=== PATIENT | female | born 2000 | race Caucasian/White ===

== ENCOUNTER 2022-02-12 11:01 | Outpatient (CLI) | payer MEDICAID ==
--- NOTE | 2022-02-12 15:47 | Ultrasound Report ---
PROCEDURE: OB First Trimester INDICATIONS: POSITIVE TEST OUTSIDE/PRIOR DATING DATA: Last menstrual period (LMP): 12/17/2021. LMP-based estimated date of delivery (TANK): 09/23/2022. First dating scan (date and location): 02/12/2022. Estimated date of delivery (TANK) from first dating scan: 09/30/2022. TECHNIQUE: Real-time transabdominal scanning was performed of the fetus and maternal pelvic organs, with image d ocumentation. COMPARISON: None FINDINGS: Embryo: Present, crown-rump length of 1.05 cm corresponding to gestational age of 7 weeks 1 day. Heart rate: 133 bpm Mean gestational sac size: 2.3 cm, corresponding to gestational age of 7 weeks 2 days. Measurement variability in dating: +/- 4 weeks by LMP, +/- 7 days by mean sac diameter (use before 6 weeks gestation if crown-rump length not able to be measured), +/- 5 days by crown-rump length (6-12 weeks gestation). Maternal organs: Ovaries are unremarkable. IMPRESSION: Single living intrauterine with gestational age of 7 weeks 1 day by crown-rump length, disc ordant with clinical dates. Reviewed by: Cristhian Mcdermott MD on 02/12/2022 3:46 PM PDT Approved by: Cristhian Mcdermott MD on 02/12/2022 3:46 PM PDT Station ID: [id number]
== END 2022-02-12 11:02 | disposition home or self-care (01) ==
LOC: DI 11:01
PROVIDERS: ATTEND Obstetrics & Gynecology
DX: Z32.01 Encounter for pregnancy test, result positive (principal)

== ENCOUNTER 2022-03-05 14:27 | Outpatient (CLI) | payer MEDICAID ==
[2022-03-05 14:44] LABS: BASOPHILS % (AUTO) 0.4 %; EOSINOPHILS % (AUTO) 0.3 %; HCT - HEMATOCRIT 38.9 % (37.0-47.0); HGB - HEMOGLOBIN 13.1 g/dL (12.0-16.0); LYMPHOCYTES # (AUTO) 1.4 10^3/uL (1.5-3.5); LYMPHOCYTES % (AUTO) 20.4 %; MEAN CORPUSCULAR HEMOGLOBIN 26.3 pg (27.0-31.0); MEAN CORPUSCULAR HGB CONC 33.7 g/dL (32.0-36.0); MEAN CORPUSCULAR VOLUME 78.1 fL (81.0-99.0); MEAN PLATELET VOLUME 10.5 fL (7.9-10.8); MONOCYTES # (AUTO) 0.4 10^3/uL (0.0-1.0); MONOCYTES % (AUTO) 6.6 %; NEUTROPHILS # (AUTO) 4.8 10^3/uL (1.5-6.6); NEUTROPHILS % (AUTO) 72.2 %; PLT - PLATELET COUNT 281 10^3/uL (130-450); RED BLOOD COUNT 4.98 10^6/uL (4.20-5.40); RED CELL DISTRIBUTION WIDTH 14.8 % (12.0-15.0); WHITE BLOOD COUNT 6.7 x10^3/uL (4.8-10.8)
[2022-03-06 06:09] LABS: HIV SCREEN 4TH GENERATION Non Reactive (Non Reactive); PROGESTERONE 13.4 ng/mL (.)
[2022-03-06 07:09] LABS: HBsAG SCREEN Negative (Negative); HCV AB 0.2 s/co ratio (0.0-0.9)
[2022-03-06 08:09] LABS: RPR Non Reactive (Non Reactive)
[2022-03-06 10:09] LABS: VARICELLA-ZOSTER AB IGG <135 index (Immune >165)
== END 2022-03-05 14:28 | disposition home or self-care (01) ==
LOC: LAB 14:27
PROVIDERS: ATTEND Obstetrics & Gynecology
DX: Z36.89 Encounter for other specified antenatal screening (principal); Z32.01 Encounter for pregnancy test, result positive
CPT/HCPCS: 36415; 84144; 85025; 86592; 86762; 86787; 86803; 86850; 86900; 86901; 87340; 87389

== ENCOUNTER 2022-04-13 12:50 | Outpatient (CLI) | payer MEDICAID ==
[2022-04-18 21:07] LABS: AFP MOM See interpretation. (.); AFP VALUE 23.8 ng/mL (.); DIA MOM See interpretation. (.); DIA VALUE 145.24 pg/mL (.); DSR (BY AGE) 1 IN 1116 (.); DSR (SECOND TRIMESTER) 1 IN See interpretation. (.); GESTAT. AGE METHOD As provided (.); HCG MOM See interpretation. (.); HCG VALUE 42976 mIU/mL (.); MATERNAL AGE AT EDD 22.5 yr (.); OPEN SPINA BIFIDA RISK 1 IN See interpretation. (.); RESULTS Report (.); TEST RESULTS See interpretation. (.); TRISOMY 18 RISK See interpretation. (.); UE3 MOM See interpretation. (.); UE3 VALUE 1.03 ng/mL (.)
== END 2022-04-13 12:51 | disposition home or self-care (01) ==
LOC: LAB 12:50
PROVIDERS: ATTEND Obstetrics & Gynecology
DX: Z34.00 Encounter for supervision of normal first pregnancy, unspecified trimester (principal)
CPT/HCPCS: 36415; 81511

== ENCOUNTER 2022-05-04 16:20 | Outpatient (CLI) | payer MEDICAID ==
[2022-05-04 17:00] LABS: RUPTURE OF MEMBRANES PLUS NEGATIVE (NEGATIVE)
[2022-05-04 23:05] LABS: BACTERIAL VAGINOSIS DNA NEGATIVE (NEGATIVE); CANDIDA GLABRATA DNA NEGATIVE (NEGATIVE); CANDIDA GROUP DNA NEGATIVE (NEGATIVE); CANDIDA KRUSEI DNA NEGATIVE (NEGATIVE); TRICHOMONAS VAGINALIS DNA NEGATIVE (NEGATIVE)
== END 2022-05-04 23:59 | disposition home or self-care (01) ==
LOC: LAB.WC 16:20
PROVIDERS: ATTEND Nurse Practitioner
DX: Z03.71 Encounter for suspected problem with amniotic cavity and membrane ruled out (principal)
CPT/HCPCS: 81514; 84112

== ENCOUNTER 2022-05-14 16:23 | Outpatient (CLI) | payer MEDICAID ==
--- NOTE | 2022-05-15 14:20 | Ultrasound Report ---
PROCEDURE: OB Detailed Eval INDICATIONS: SUPERVISION OF OUTSIDE/PRIOR DATING DATA: Last menstrual period (LMP): 12/17/2021. LMP-based estimated date of delivery (TANK): . First dating scan (date and location): Dr. Coto office. 02/12/2022. Estimated date of delivery (TANK) from first dating scan: 09/20/2022. TECHNIQUE: Real-time scanning was performed of the fetus, with image documentation and biometric measurements. Endovaginal scanning: Not performed COMPARISON: First trimester OB ultrasound dated 02/12/2022 FINDINGS: General: A single living intrauterine gestation is present. Presentation: Variable Placenta: Placental position is anterior, without previa. Amniotic fluid index: 16.5 cm. heart rate: 166 beats per minute. Maternal cervical canal: 3.7 cm long; normal length is 2.5 cm or more. biometrics: Biparietal diameter: 4.5 cm, 19 weeks, 5 days Head circumference: 17.8 cm, 20 weeks, 2 days Abdominal circumference: 14.7 cm, 20 weeks, 0 days Femur length: 3.2 cm, 20 weeks, 0 days Estimated gestational age from initial scan: 20 weeks, 1 day Composite gestational age from present scan: 19 weeks, 6 days Estimated weight and percentile: 325 g, 37% Measurement variability in biometric dating: +/- 10 days from 12-20 weeks gestation, +/- 2 weeks from 20-30 weeks gestation, +/- 3 weeks at 30 weeks gestation or later. Anatomic survey: Neuro: Ventricles are normal at less than 10 mm. Cisterna magna is normal at 3-11 mm. Cerebellum i s normal in size and morphology. Nuchal skin fold: Normal at less than 6 mm between 14 and 20 weeks gestational age. Face: Nose and lips, facial profile are normal. Spine: No evidence for spina bifida. Heart: 4-chambered heart is present, with normal ventricular outflow tracts. Diaphragm: Diaphragm is intact. Stomach: Left-sided stomach is present. Kidneys: No hydronephrosis. Normal is less than 5 mm in 2nd trimester, less than 7 mm in 3rd trimester. Cord: 3 vessel cord has orthotopic insertion. Bladder: Normal in size. Extremities: All 4 extremities are visualized. IMPRESSION: 1. Single live intrauterine gestation with a composite gestational age of 19 weeks, 6 days which is c oncordant with dates by initial scan. 2. No sonographic anatomic abnormalities. Reviewed by: Chela Vyas MD on 05/15/2022 2:19 PM PST Approved by: Chela Vyas MD on 05/15/2022 2:19 PM PST Station ID: [id number]
== END 2022-05-14 16:24 | disposition home or self-care (01) ==
LOC: DI 16:23
PROVIDERS: ATTEND Obstetrics & Gynecology
DX: Z34.02 Encounter for supervision of normal first pregnancy, second trimester (principal)

== ENCOUNTER 2022-05-15 11:22 | Emergency (ER) | payer MEDICAID ==
[2022-05-15 11:54] VITALS: BP 126/65
[2022-05-15 12:14] LABS: RAPID STREP SCREEN Negative (Negative)
--- NOTE | 2022-05-15 12:56 | ED Physician Documentation ---
PD HPI HEENT - Stated complaint Stated Complaint: THROAT PX/VOMITING - Chief complaint Chief Complaint: Heent - History obtained from History obtained from: Patient - Additional information Additional information: The patient comes the emergency department with chief complaint of "I have strep". She states that she began to develop a scratchy throat yesterday and then had some vomiting, and her mother told her that these are the same symptoms she has every time she has strep. The patient states she has a mildly runny nose and a little bit of a cough as well. No fevers or chills. She is 20 weeks . No other complaints at this time. Review of Systems Ten Systems: 10 systems reviewed and negative Constitutional: reports: Reviewed and negative Eyes: reports: Reviewed and negative Ears: reports: Reviewed and negative Nose: reports: Congestion Throat: reports: Sore throat Cardiac: reports: Reviewed and negative Respiratory: reports: Cough GI: reports: Reviewed and negative : reports: Reviewed and negative Skin: reports: Reviewed and negative Musculoskeletal: reports: Reviewed and negative Neurologic: reports: Reviewed and negative Psychiatric: reports: Reviewed and negative Endocrine: reports: Reviewed and negative Immunocompromised: reports: Reviewed and negative PD PAST MEDICAL HISTORY - Present Medications Home Medications: Ambulatory Orders Medication Instructions Recorded Confirmed No Known Home Medications 05/15/22 05/15/22 - Allergies Allergies/Adverse Reactions: Allergies Allergy/AdvReac Type Severity Reaction Status Date / Time No Known Drug Allergies Allergy Verified 05/15/22 11:46 PD ED PE NORMAL - Vitals Vital signs reviewed: Yes - General General: Alert and oriented X 3, No acute distress, Well developed/nourished - HEENT HEENT: Atraumatic, PERRL, EOMI, Moist mucous membranes, Pharynx benign (Slight erythema of bilateral arches, but tonsils are neither enlarged nor erythematous, and displayed no exudates.) - Neck Neck: Supple, no meningeal sign - Cardiac Cardiac: RRR, No murmur - Respiratory Respiratory: No respiratory distress, Clear bilaterally - Abdomen Abdomen: Soft, Non tender, Other (Mild distention, with gravid uterus, consistent with 20-week ) - Derm Derm: Normal color, Warm and dry, No rash - Extremities Extremities: No deformity, No edema - Neuro Neuro: Other (Grossly intact) - Psych Psych: Normal mood, Normal affect Results - Vitals Vitals: Vital Signs - 24 hr 05/15/22 11:46 Temperature 36.9 C Heart Rate 97 Respiratory 20 Rate Blood Pressure 126/65 O2 Saturation 99 Oxygen O2 Source Room air - Labs Labs: Laboratory Tests 05/15/22 11:41 Group A Strep Rapid Negative PD MEDICAL DECISION MAKING - ED course Complexity details: reviewed results, re-evaluated patient, considered differential, d/w patient ED course: I discussed with the patient that her strep test is actually negative and her symptoms really do not indicate strep pharyngitis. She is much more likely to have a viral illness, considering the nasal congestion, cough, sore throat, and vomiting. Additionally, the patient's throat exam does not have the appearance of strep whatsoever. We have discussed symptomatic management at home. The patient is convinced that if she does not have strep, she has "allergies". I have tried to explain to her repeatedly that she actually most likely has a viral illness, but she is wanting to know if she can take something for allergies during . I have advised her that at this point in time, there is no reason to feel that her symptoms are due to allergies and I would recommend not taking any unnecessary medication during . She may speak with her OB further about this if she wishes. Departure - Departure Disposition: 01 Home, Self Care Clinical Impression: Viral upper respiratory infection Condition: Stable Instructions: ED Viral Syndrome Comments: Your strep test is negative, and your throat does not have the appearance of strep whatsoever. Additionally, strep is not accompanied by upper respiratory symptoms such as cough or runny nose. Most likely, you have one of the many viral illnesses that are going around right now. These are not helped by antibiotics and have to resolve on their own by the work of your body's immune system. While Benadryl is technically safe during , it is really best that you not take the medication unless she really needed. Your symptoms are much more likely to be viral than allergy related, and as such, the Benadryl is unlikely to be helpful. Please speak more with your OB specialist if you wish to explore this issue further.
== END 2022-05-15 13:06 | disposition home or self-care (01) ==
LOC: ED 11:22
DX: O99.512 Diseases of the respiratory system complicating pregnancy, second trimester (principal); J06.9 Acute upper respiratory infection, unspecified; B97.89 Other viral agents as the cause of diseases classified elsewhere; Z3A.20 20 weeks gestation of pregnancy
CPT/HCPCS: 87070; 87430; 99282; 99283

== ENCOUNTER 2022-05-24 19:40 | Outpatient (CLI) | payer MEDICAID ==
[2022-05-24 20:10] VITALS: BP 127/74
--- NOTE | 2022-05-24 20:31 | PROVIDER PROGRESS NOTE ---
- HPI Chief Complaint: Decreased movement Current : Vital Signs Temperature 97.9 F 05/24/22 20:03 Heart Rate 86 05/24/22 20:03 Respiratory Rate 18 05/24/22 20:03 Blood Pressure 131/77 H 05/24/22 20:03 Temperature 97.9 F 05/24/22 20:03 Heart Rate 86 05/24/22 20:03 Respiratory Rate 18 05/24/22 20:03 Blood Pressure 127/74 05/24/22 20:09 O2 Saturation If not protocol: Oxygen Flow, liters/minute - Exam positive heart tones gestational age too early for NST - Plan Plan: Patient complaining of decreased movement at 22 weeks positive heart tones discussed kick counting starting at 30 weeks. Patient has follow up scheduled with Dr. Coto
== END 2022-05-24 20:37 | disposition home or self-care (01) ==
LOC: WFO 19:40 → FBP 19:45 → WFO 20:37
PROVIDERS: ATTEND Obstetrics & Gynecology Obstetrics
DX: O36.8120 Decreased fetal movements, second trimester, not applicable or unspecified (principal); Z3A.22 22 weeks gestation of pregnancy
CPT/HCPCS: 99213

== ENCOUNTER 2022-06-25 11:22 | Outpatient (CLI) | payer MEDICAID | END 2022-06-25 11:23 | disposition home or self-care (01) | LOC: RT 11:22 | PROVIDERS: ATTEND Obstetrics & Gynecology | DX: R00.2 Palpitations (principal) | CPT/HCPCS: 93005 ==

== ENCOUNTER 2022-07-08 11:59 | Outpatient (CLI) | payer MEDICAID ==
[2022-07-08 13:19] LABS: HCT - HEMATOCRIT 34.9 % (37.0-47.0); HGB - HEMOGLOBIN 11.3 g/dL (12.0-16.0); MEAN CORPUSCULAR HGB CONC 32.4 g/dL (32.0-36.0); MEAN CORPUSCULAR VOLUME 86.4 fL (81.0-99.0); MEAN PLATELET VOLUME 10.4 fL (7.9-10.8); RED BLOOD COUNT 4.04 10^6/uL (4.20-5.40); RED CELL DISTRIBUTION WIDTH 13.1 % (12.0-15.0); WHITE BLOOD COUNT 7.7 x10^3/uL (4.8-10.8)
== END 2022-07-08 12:00 | disposition home or self-care (01) ==
LOC: LAB 11:59
PROVIDERS: ATTEND Obstetrics & Gynecology
DX: Z34.90 Encounter for supervision of normal pregnancy, unspecified, unspecified trimester (principal)
CPT/HCPCS: 36415; 82950; 85027

== ENCOUNTER 2022-07-09 08:00 | Outpatient (CLI) | payer MEDICAID ==
[2022-07-09 15:45] LABS: BILIRUBIN,URINE NEGATIVE (NEGATIVE); GLUCOSE, URINE (UA) NEGATIVE (NEGATIVE); KETONES,URINE (UA) NEGATIVE (NEGATIVE); LEUKOCYTE ESTERASE, URINE NEGATIVE (NEGATIVE); NITRITE,URINE NEGATIVE (NEGATIVE); OCCULT BLOOD,URINE NEGATIVE (NEGATIVE); PROTEIN,URINE NEGATIVE (NEGATIVE); UROBILINOGEN,URINE 0.2 (NORMAL) E.U./dL (NORMAL)
[2022-07-09 16:05] LABS: BACTERIA,URINE Few /HPF (None Seen); CLARITY,URINE HAZY (CLEAR); MUCUS,URINE Few Strands; RBC,URINE None Seen /HPF (0-5); SQUAMOUS EPITHELIAL CELL,UR MANY Squamous (<= Few); WBC,URINE 0-3 /HPF (0-5)
== END 2022-07-09 23:59 | disposition home or self-care (01) ==
LOC: LAB.WC 08:00
PROVIDERS: ATTEND Obstetrics & Gynecology
DX: N30.00 Acute cystitis without hematuria (principal)
CPT/HCPCS: 81001; 87086

== ENCOUNTER 2022-07-23 11:01 | Outpatient (CLI) | payer MEDICAID ==
[2022-07-23 11:12] LABS: HCT - HEMATOCRIT 34.8 % (37.0-47.0); HGB - HEMOGLOBIN 11.2 g/dL (12.0-16.0); MEAN CORPUSCULAR HEMOGLOBIN 27.7 pg (27.0-31.0); MEAN CORPUSCULAR HGB CONC 32.2 g/dL (32.0-36.0); MEAN CORPUSCULAR VOLUME 85.9 fL (81.0-99.0); MEAN PLATELET VOLUME 10.8 fL (7.9-10.8); RED BLOOD COUNT 4.05 10^6/uL (4.20-5.40); RED CELL DISTRIBUTION WIDTH 12.7 % (12.0-15.0); WHITE BLOOD COUNT 9.1 x10^3/uL (4.8-10.8)
[2022-07-23 11:23] LABS: CREATININE,URINE 159.7 mg/dL; PROTEIN/CREATININE RATIO,URINE 0.1 (<=0.2)
[2022-07-23 11:25] LABS: ALBUMIN/GLOBULIN RATIO 0.9 (1.0-2.2); BILIRUBIN,TOTAL 0.4 mg/dL (0.2-1.0); CALCIUM 8.9 mg/dL (8.5-10.3); CREATININE 0.6 mg/dL (0.4-1.0); POTASSIUM 3.8 mmol/L (3.5-5.0); TOTAL PROTEIN 6.5 g/dL (6.7-8.2)
== END 2022-07-23 11:02 | disposition home or self-care (01) ==
LOC: LAB 11:01
PROVIDERS: ATTEND Obstetrics & Gynecology
DX: O16.9 Unspecified maternal hypertension, unspecified trimester (principal)
CPT/HCPCS: 36415; 80053; 82570; 84156; 85027

== ENCOUNTER 2022-08-06 20:31 | Outpatient (CLI) | payer MEDICAID ==
--- NOTE | 2022-08-07 08:42 | Ultrasound Report ---
PROCEDURE: OB F/U or Repeat INDICATIONS: HYPERTENSION OUTSIDE/PRIOR DATING DATA: Last menstrual period (LMP): 12/17/2021. LMP-based estimated date of delivery (TANK): 09/23/2022. First dating scan (date and location): 02/12/2022. Estimated date of delivery (TANK) from first dating scan: 09/30/2022. The below data below was generated using the working TANK of 09/30/2022 TECHNIQUE: Real-time scanning was performed of the fetus, with image documentation and biometric measurements. Endovaginal scanning: Not indicated COMPARISON: 02/12/2022, 05/14/2022. FINDINGS: General: A single living intrauterine gestation is present. Presentation: Vertex Placenta: Placental position is anterior, without previa. Amniotic fluid index: 13.3 cm, normal for gestational age. heart rate: 148 beats per minute. Maternal cervical canal: 4.9 cm long; normal length is 2.5 cm or more. biometrics: Biparietal diameter: 8.1 cm, 32 weeks, 2 days. Head circumference: 30.2 cm, 33 weeks, 3 days. Abdominal circumference: 27.4 cm, 31 weeks, 3 days. Femur length: 6.3 cm, 32 weeks, 3 days. Estimated gestational age from initial scan: 32 weeks, 1 day. Composite gestational age from present scan: 32 weeks, 3 days. Estimated weight and percentile: 1882.1g, 34.5% Measurement variability in biometric dating: +/- 10 days from 12-20 weeks gestation, +/- 2 weeks from 20-30 weeks gestation, +/- 3 weeks at 30 weeks gestation or more. Other: Not applicable. IMPRESSION: 1. Single live intrauterine gestation with fetus in vertex presentation. heart rate is 148 bpm. Normal amount of amniotic fluid. JUANITA equals 13.3 cm. Normal growth. Estimated weight is at 34.5%. Reviewed by: Tarik Moe MD on 08/07/2022 8:41 AM PST Approved by: Tarik Moe MD on 08/07/2022 8:41 AM PST Station ID: [id number]
== END 2022-08-06 20:32 | disposition home or self-care (01) ==
LOC: DI 20:31
PROVIDERS: ATTEND Obstetrics & Gynecology
DX: O16.3 Unspecified maternal hypertension, third trimester (principal); Z3A.32 32 weeks gestation of pregnancy

== ENCOUNTER 2022-08-08 21:46 | Outpatient (CLI) | payer MEDICAID ==
[2022-08-08 22:06] VITALS: BP 129/88
[2022-08-08 22:37] LABS: BILIRUBIN,URINE NEGATIVE (NEGATIVE); GLUCOSE, URINE (UA) NEGATIVE (NEGATIVE); KETONES,URINE (UA) NEGATIVE (NEGATIVE); LEUKOCYTE ESTERASE, URINE NEGATIVE (NEGATIVE); NITRITE,URINE NEGATIVE (NEGATIVE); OCCULT BLOOD,URINE NEGATIVE (NEGATIVE); PROTEIN,URINE NEGATIVE (NEGATIVE); UROBILINOGEN,URINE 0.2 (NORMAL) E.U./dL (NORMAL)
[2022-08-08] MEDS ORDERED: ACETAMINOPHEN 500 MG TABLET PO PRN (22:43)
[2022-08-08 22:46] LABS: CLARITY,URINE CLEAR (CLEAR); RBC,URINE None Seen /HPF (0-5); WBC,URINE 0-3 /HPF (0-5)
[2022-08-08 22:47] LABS: BACTERIA,URINE Few /HPF (None Seen); SQUAMOUS EPITHELIAL CELL,UR MOD Squamous (<= Few)
--- NOTE | 2022-08-08 22:48 | PROVIDER PROGRESS NOTE ---
- HPI Chief Complaint: Pain, non-labor Current : Vital Signs Temperature 98.5 F 08/08/22 22:00 Heart Rate 97 08/08/22 22:00 Respiratory Rate 14 08/08/22 22:00 Blood Pressure 129/88 H 08/08/22 22:00 Temperature 98.5 F 08/08/22 22:00 Heart Rate 97 08/08/22 22:00 Respiratory Rate 14 08/08/22 22:00 Blood Pressure 129/88 H 08/08/22 22:00 O2 Saturation If not protocol: Oxygen Flow, liters/minute - Procedures OB Procedure Performed: NST Diagnosis/Indication for NST: Decreased movement NST Procedure: NST Procedure Start Date 08/08/22 Start Time 21:57 Stop Time 23:26 Vibroacoustic Stimulation Used No Patient States Movement Yes Service Date of procedure: 08/08/22 (Read 08/08/22) - Plan Plan: Patient is a 22-year-old G1, P0 at 32 weeks 4 days gestation presenting to triage for left-sided low back pain and decreased movement. Patient had intermittent low back pain for over a week, but today seem to be persistent rather intermittent. Did feel somewhat better after taking a bath, but pain returned afterwards. Has not taking any medication for the pain. She denies leaking and bleeding she denies headache, right upper quadrant pain, changes in vision. Past medical history Chronic hypertension affecting Physical Constitutional: alert, no acute distress, well hydrated, well developed, well nourished, appropriate dress. Cardiovascular: Regular rate and rhythm. Respiratory: no respiratory distress. Abdomen: nondistended, nontender, no guarding. No peritoneal signs. Back: Mild tenderness to low back/gluteal palpation. No CVA tenderness. Psych: affect and mood appropriate, normal interaction, good eye contact. FHT: 150 bpm baseline, moderate variability, accelerations present, no decelerations. Reactive NST [place]: Quiescent Labs: Laboratory Last Values Urine Color YELLOW 08/08/22 21:55 Urine Clarity CLEAR (CLEAR) 08/08/22 21:55 Urine pH 7.0 PH (5.0-7.5) 08/08/22 21:55 Ur Specific [place] 1.010 (1.002-1.030) 08/08/22 21:55 Urine Protein NEGATIVE mg/dL (NEGATIVE) 08/08/22 21:55 Urine Glucose (UA) NEGATIVE mg/dL (NEGATIVE) 08/08/22 21: Urine Ketones NEGATIVE mg/dL (NEGATIVE) 08/08/22 21: Urine Occult Blood NEGATIVE (NEGATIVE) 08/08/22 21: Urine Nitrite NEGATIVE (NEGATIVE) 08/08/22 21: Urine Bilirubin NEGATIVE (NEGATIVE) 08/08/22 21:55 Urine Urobilinogen 0.2 (NORMAL) E.U./dL (NORMAL) 08/08/22 21: Ur Leukocyte Esterase NEGATIVE (NEGATIVE) 08/08/22 21: Urine RBC None Seen /HPF (0-5) 08/08/22 21: Urine WBC 0-3 /HPF (0-5) 08/08/22 21: Ur Squamous Epith Cells MOD Squamous (<= Few) H 08/08/22 21: Urine Bacteria Few /HPF (None Seen) 08/08/22 21: Urine Culture Comments NOT INDICATED 08/08/22 21:55 Assessment and plan 22-year-old G1, P0 at 32 weeks 4 days gestation with low back pain and decreased movement. 1. Low back pain: -Likely musculoskeletal. Discussed rest as well as stretching. Did give 1 g Tylenol which helped mildly. Encouraged several days of treatment and reassessing. As patient had no trauma and no significant worrisome signs, is likely discomforts of and caring her body differently. -UA unremarkable and no fever. 2. Decreased movement: -Movement felt since arrival. Reactive NST. 3. Chronic hypertension -Normal blood pressure in triage today.
== END 2022-08-08 23:45 | disposition home or self-care (01) ==
LOC: WFO 21:46 → FBP 21:48 → WFO 23:45
PROVIDERS: ATTEND Obstetrics & Gynecology
DX: O36.8130 Decreased fetal movements, third trimester, not applicable or unspecified (principal); O99.891 Other specified diseases and conditions complicating pregnancy; M54.50 Low back pain, unspecified; O16.3 Unspecified maternal hypertension, third trimester; Z3A.32 32 weeks gestation of pregnancy
CPT/HCPCS: 59025; 81001; 99213; A9270; 87086; 99215

== ENCOUNTER 2022-08-28 15:06 | Outpatient (CLI) | payer MEDICAID ==
[2022-08-28 16:15] LABS: BASOPHILS % (AUTO) 0.2 %; EOSINOPHILS # (AUTO) 0.1 10^3/uL (0.0-0.7); EOSINOPHILS % (AUTO) 0.9 %; HGB - HEMOGLOBIN 11.2 g/dL (12.0-16.0); LYMPHOCYTES # (AUTO) 1.4 10^3/uL (1.5-3.5); LYMPHOCYTES % (AUTO) 16.8 %; MEAN CORPUSCULAR HEMOGLOBIN 27.2 pg (27.0-31.0); MEAN PLATELET VOLUME 11.5 fL (7.9-10.8); MONOCYTES # (AUTO) 0.5 10^3/uL (0.0-1.0); MONOCYTES % (AUTO) 6.3 %; NEUTROPHILS # (AUTO) 6.4 10^3/uL (1.5-6.6); NEUTROPHILS % (AUTO) 75.6 %; PLT - PLATELET COUNT 201 10^3/uL (130-450); RED BLOOD COUNT 4.12 10^6/uL (4.20-5.40); WHITE BLOOD COUNT 8.5 x10^3/uL (4.8-10.8)
[2022-08-28 16:27] LABS: ALBUMIN 2.9 g/dL (3.2-5.5); ALBUMIN/GLOBULIN RATIO 0.8 (1.0-2.2); ALKALINE PHOSPHATASE 100 IU/L (42-121); ALT ALANINE AMINOTRANSFERASE < 10 IU/L (10-60); AST ASPARTATE AMINOTRANSFERASE 15 IU/L (10-42); BILIRUBIN,TOTAL 0.4 mg/dL (0.2-1.0); BUN - BLOOD UREA NITROGEN 7 mg/dL (6-20); CALCIUM 8.4 mg/dL (8.5-10.3); CARBON DIOXIDE - CO2 22 mmol/L (21-32); CHLORIDE 104 mmol/L (101-111); CREATININE 0.6 mg/dL (0.4-1.0); GFR - MDRD 125 (>89); GLUCOSE 101 mg/dL (70-100); POTASSIUM 3.4 mmol/L (3.5-5.0); SODIUM 134 mmol/L (135-145); TOTAL PROTEIN 6.4 g/dL (6.7-8.2)
[2022-08-28 16:28] LABS: CREATININE,URINE 179.5 mg/dL; PROTEIN/CREATININE RATIO,URINE 0.2 (<=0.2)
--- NOTE | 2022-08-28 16:54 | PROVIDER PROGRESS NOTE ---
- HPI Chief Complaint: Headache Current : Vital Signs Temperature 98.1 F 08/28/22 15:21 Heart Rate 119 H 08/28/22 15:21 Respiratory Rate 18 08/28/22 15:21 Blood Pressure 130/97 H 08/28/22 15:21 Temperature 98.1 F 08/28/22 15:21 Heart Rate 119 H 08/28/22 15:21 Respiratory Rate 18 08/28/22 15:21 Blood Pressure 130/78 08/28/22 15:44 O2 Saturation If not protocol: Oxygen Flow, liters/minute - Procedures OB Procedure Performed: NST Diagnosis/Indication for NST: Gestational Hypertension NST Procedure: NST Procedure Start Time 21:57 Stop Time 23:26 EFM: 140s, moderate variability, positive 15x15 accelerations, no decelerations [place]: no contractions NST reactive/Cat 1 Performed and read on 08/28/22 Service Date of procedure: 08/28/22 - Plan Plan: 22yo at 35.2w presenting with headache and seeing spots. She took Tylenol earlier with minimal relief. Offered additional headache medication, she declines. complicated by chronic hypertension and she is worried she is developing preeclampsia. BP initially 130/97 then 130/78. Preeclampsia labs obtained. Denies contractions, leaking fluid or bleeding. Good movement. VSS, BP as above GEN: NAD CV: Regular rate Resp: Breathing unlabored Abd: soft, nt NST reactive 22yo at 35.2w with chronic hypertension in - NST reactive - BP stable, preeclampsia labs benign - Reassurance given, may discharge to home with labor and preeclampsia precautions - Follow up 1w as scheduled
[2022-08-28 17:41] VITALS: BP 114/80
== END 2022-08-28 16:50 | disposition home or self-care (01) ==
LOC: WFO 15:06 → FBP 15:08 → WFO 16:50
PROVIDERS: ATTEND Obstetrics & Gynecology
DX: O13.3 Gestational [pregnancy-induced] hypertension without significant proteinuria, third trimester (principal); Z3A.35 35 weeks gestation of pregnancy; O99.891 Other specified diseases and conditions complicating pregnancy; R51.9 Headache, unspecified
CPT/HCPCS: 36415; 59025; 80053; 82570; 84156; 85025; 99214; 99215

== ENCOUNTER 2022-09-03 08:00 | Outpatient (CLI) | payer MEDICAID | END 2022-09-03 23:59 | disposition home or self-care (01) | LOC: LAB.WC 08:00 | PROVIDERS: ATTEND Obstetrics & Gynecology | DX: Z36.85 Encounter for antenatal screening for Streptococcus B (principal) | CPT/HCPCS: 87797 ==

== ENCOUNTER 2022-09-03 10:55 | Outpatient (CLI) | payer MEDICAID ==
[2022-09-03 11:55] LABS: BASOPHILS % (AUTO) 0.3 %; EOSINOPHILS # (AUTO) 0.1 10^3/uL (0.0-0.7); HCT - HEMATOCRIT 34.4 % (37.0-47.0); HGB - HEMOGLOBIN 11.2 g/dL (12.0-16.0); LYMPHOCYTES # (AUTO) 1.2 10^3/uL (1.5-3.5); LYMPHOCYTES % (AUTO) 16.5 %; MEAN CORPUSCULAR HEMOGLOBIN 27.2 pg (27.0-31.0); MEAN CORPUSCULAR HGB CONC 32.6 g/dL (32.0-36.0); MEAN CORPUSCULAR VOLUME 83.5 fL (81.0-99.0); MEAN PLATELET VOLUME 11.6 fL (7.9-10.8); MONOCYTES # (AUTO) 0.4 10^3/uL (0.0-1.0); NEUTROPHILS # (AUTO) 5.5 10^3/uL (1.5-6.6); NEUTROPHILS % (AUTO) 75.9 %; PLT - PLATELET COUNT 179 10^3/uL (130-450); RED BLOOD COUNT 4.12 10^6/uL (4.20-5.40); RED CELL DISTRIBUTION WIDTH 13.1 % (12.0-15.0); WHITE BLOOD COUNT 7.2 x10^3/uL (4.8-10.8)
[2022-09-03 12:28] LABS: ALBUMIN 2.8 g/dL (3.2-5.5); ALBUMIN/GLOBULIN RATIO 0.8 (1.0-2.2); BILIRUBIN,TOTAL 0.3 mg/dL (0.2-1.0); CALCIUM 8.4 mg/dL (8.5-10.3); CREATININE 0.6 mg/dL (0.4-1.0); POTASSIUM 3.6 mmol/L (3.5-5.0); TOTAL PROTEIN 6.4 g/dL (6.7-8.2)
--- NOTE | 2022-09-03 12:45 | PROVIDER PROGRESS NOTE ---
- HPI Chief Complaint: Hypertension/PIH Current : Current EDU 09/30/22 Gestation 36 Weeks and 1 Days 2 Para 0 Vital Signs Temperature 98.1 F 09/03/22 11:20 Heart Rate 108 H 09/03/22 11:20 Respiratory Rate 16 09/03/22 11:20 Blood Pressure 122/73 09/03/22 11:20 Temperature 98.1 F 09/03/22 11:20 Heart Rate 108 H 09/03/22 11:20 Respiratory Rate 16 09/03/22 11:20 Blood Pressure 122/73 09/03/22 11:20 O2 Saturation If not protocol: Oxygen Flow, liters/minute - Procedures OB Procedure Performed: NST Diagnosis/Indication for NST: Gestational Hypertension NST Procedure: NST Procedure Start Date 09/03/22 Start Time 11:08 Stop Time 11:40 Vibroacoustic Stimulation Used No Patient States Movement Yes EFM: 150s, moderate variability, positive 15x15 accelerations, no decelerations [place]: no contractions NST reactive/Cat 1 Performed and read on 09/03/22 Service Date of procedure: 09/03/22 - Plan Plan: 22yo at 36.1w sent from office for chronic hypertension (146/100) today in - CBC, CMP, uric acid benign. BP normotensive. - NST reactive - Follow up GBS - Growth scan 09/11 - Follow up 1w as scheduled, preeclampsia precautions - Follow up PCR
[2022-09-03 13:01] LABS: CREATININE,URINE 221.5 mg/dL; PROTEIN/CREATININE RATIO,URINE 0.1 (<=0.2)
[2022-09-03 13:12] VITALS: BP 118/81
== END 2022-09-03 12:45 | disposition home or self-care (01) ==
LOC: WFO 10:55 → FBP 10:57 → WFO 12:45
PROVIDERS: ATTEND Obstetrics & Gynecology
DX: O13.3 Gestational [pregnancy-induced] hypertension without significant proteinuria, third trimester (principal); Z3A.36 36 weeks gestation of pregnancy; Z36.85 Encounter for antenatal screening for Streptococcus B
CPT/HCPCS: 36415; 59025; 80053; 82570; 84156; 84550; 85025; 87797; 99213

== ENCOUNTER 2022-09-10 10:55 | Inpatient (IN) | payer MEDICAID ==
[2022-09-10] MEDS ORDERED: miSOPROStoL 200 MCG TABLET BC PRN (11:40)
[2022-09-10] MEDS ORDERED: CARBOPROST TROMETHAMINE 250 MCG/ML AMP IM PRN (11:40)
[2022-09-10] MEDS ORDERED: OXYTOCIN 10 UNIT/ML VIAL IM PRN (11:40)
[2022-09-10] MEDS ORDERED: lidocaine 1% 20 ML MDV ID PRN (11:40)
[2022-09-10] MEDS ORDERED: NIFEdipine 10 MG CAPSULE PO PRN (11:40)
[2022-09-10] MEDS ORDERED: METHYLERGONOVINE 0.2 MG/ML VIAL IM PRN (11:40)
[2022-09-10] MEDS ORDERED: TERBUTALINE 1 MG/ML VIAL SUBQ PRN (11:40)
[2022-09-10] MEDS ORDERED: SODIUM CHLORIDE FLUSH 0.9% 10 ML SYRINGE IVP PRN (11:40)
[2022-09-10] MEDS ORDERED: TRANEXAMIC ACID IN NACL 1,000 MG/100 ML BAG IV PRN (11:40)
[2022-09-10] MEDS ORDERED: hydrALAZINE INJ 20 MG/ML VIAL IVP PRN ×2 (11:40)
[2022-09-10] MEDS ORDERED: LABETALOL 20 MG/4 ML SYRINGE IVP PRN ×3 (11:40)
[2022-09-10] MEDS ORDERED: OXYTOCIN/SODIUM CHLORIDE 500 ML IV PRN (11:40)
[2022-09-10] MEDS ORDERED: miSOPROStoL 200 MCG TABLET PR PRN (11:40)
[2022-09-10] MEDS ORDERED: miSOPROStoL 100 MCG TABLET ONE (11:58)
[2022-09-10] MEDS ORDERED: miSOPROStoL 100 MCG TABLET VG SCH (12:00)
--- NOTE | 2022-09-10 12:28 | HISTORY & PHYSICAL EXAMINATION ---
History and Physical - History and Physical H&P HPI:This 22-year-old 2 para 0 AB 1 at 37 weeks 1 day was sent from the clinic for elective induction for preeclampsia. She started her with a normotensive but gradually her blood pressure went up and the last one was 156/96, 146/100. She has had a long history of headache and blurry vision and elective induction was indicated for preeclampsia. She has good movement. She denies loss of fluid. No vaginal bleeding. Denies nausea and vomiting. Denies urinary frequency or dysuria. All other symptoms reviewed and were negative except per HPI. No known allergies Medication: Breast pump use 1 device as directed as directed to express milk as needed according to baby's feeding knees. Ondansetron HCL 4 mg tablets take 1 tablet by mouth every 8 hours as needed vitamins take 1 tablet by mouth once a day Physical examination General appearance: No acute distress HEENT Head: Normocephalic Ears gross hearing intact Thyroid heart lungs breast abdomen extremities all normal Abdomen soft distended due to gravity Vulva normal appearance and no lesions or masses. Vagina normal Cervix 1 cm 50% effaced soft station -3 adnexa not palpated Current problems Chronic hypertension complicating third trimester Preeclampsia Encounter for induction of labor Gender ID Identifies as Female P: 0 A: 1 SAB: 1 L: 0 LMP: 12/17/2021 EDC: 09/30/2022 Height: 64 (09/03/2022 8:15:41 AM) Weight: 204.6 Gonnorhea: negative (03/05/2022 8:51:56 AM) Chlamydia: negative (03/05/2022 8:52:07 AM) Group B: NEGATIVE (09/03/2022 10:15:00 AM) Blood Type: O+ (03/05/2022 10:42:53 AM) Last Antibody Screen: negative (03/05/2022 10:42:53 AM) Is pt sexually active? yes Gonnorrhea: negative (03/05/2022 8:51:56 AM) Chlamydia: negative (03/05/2022 8:52:07 AM) RPR: Non Reactive (03/05/2022 2:38:00 PM) Last Pap: ASCUS (03/05/2022 8:51:47 AM) Plan: Induction of labor with Cytotec 25 mcg vaginal 4 hours as needed if necessary Gupta catheter can be used
--- NOTE | 2022-09-10 12:41 | PROCEDURE REPORT ---
- HPI Diagnosis/Indication for NST: Gestational Hypertension - NST Procedure NST Procedure Start Time 11:08 Stop Time 11:40 No need for stimulation [place] active movement Baseline: 140 Moderate variability No deceleration Present acceleration 15 x 15 - Results and Plan Findings/Impression: Reactive nonstress test Plan: Induction as scheduled
[2022-09-10 12:51] LABS: BASOPHILS % (AUTO) 0.1 %; EOSINOPHILS % (AUTO) 0.5 %; HCT - HEMATOCRIT 33.7 % (37.0-47.0); HGB - HEMOGLOBIN 11.1 g/dL (12.0-16.0); LYMPHOCYTES # (AUTO) 1.4 10^3/uL (1.5-3.5); LYMPHOCYTES % (AUTO) 17.6 %; MEAN CORPUSCULAR HEMOGLOBIN 26.7 pg (27.0-31.0); MEAN CORPUSCULAR HGB CONC 32.9 g/dL (32.0-36.0); MEAN CORPUSCULAR VOLUME 81.2 fL (81.0-99.0); MEAN PLATELET VOLUME 12.2 fL (7.9-10.8); MONOCYTES # (AUTO) 0.6 10^3/uL (0.0-1.0); NEUTROPHILS % (AUTO) 74.3 %; PLT - PLATELET COUNT 198 10^3/uL (130-450); RED BLOOD COUNT 4.15 10^6/uL (4.20-5.40); RED CELL DISTRIBUTION WIDTH 13.2 % (12.0-15.0); WHITE BLOOD COUNT 8.1 x10^3/uL (4.8-10.8)
[2022-09-10 13:10] LABS: ALBUMIN/GLOBULIN RATIO 0.8 (1.0-2.2); BILIRUBIN,TOTAL 0.4 mg/dL (0.2-1.0); CALCIUM 8.8 mg/dL (8.5-10.3); CREATININE 0.5 mg/dL (0.4-1.0); POTASSIUM 3.8 mmol/L (3.5-5.0); TOTAL PROTEIN 6.7 g/dL (6.7-8.2)
[2022-09-10 14:05] LABS: CREATININE,URINE 217.6 mg/dL; PROTEIN/CREATININE RATIO,URINE 0.2 (<=0.2)
[2022-09-10] MEDS: miSOPROStoL 100 MCG TABLET VG SCH (15:25)
--- NOTE | 2022-09-10 15:33 | PROVIDER PROGRESS NOTE ---
Subjective - Prog Note Date Prog Note Date: 09/10/22 - Subjective Pt reports feeling: No change (She started feel little contractions but not significant and she denies any further problems with headache or blurry vision.) Objective - Vital Signs/Intake & Output Vital Signs: Vital Signs x48h Temp Pulse Resp 09/10/22 12:22 98.2 F 98 16 Intake & Output: Intake & Output 09/07/22 09/08/22 09/09/22 09/10/22 23:59 23:59 23:59 23:59 Output Total 0 Balance 0 - Lab Results Fish Bones: 09/10/22 12:15 09/10/22 12:15 Other Labs: Lab Results x24hrs 09/10/22 09/10/22 09/10/22 Range/Units 13:30 12:15 12:15 WBC 8.1 (4.8-10.8) x10^3/uL RBC 4.15 L (4.20-5.40) 10^6/uL Hgb 11.1 L (12.0-16.0) g/dL Hct 33.7 L (37.0-47.0) % MCV 81.2 (81.0-99.0) fL MCH 26.7 L (27.0-31.0) pg MCHC 32.9 (32.0-36.0) g/dL RDW 13.2 (12.0-15.0) % Plt Count 198 (130-450) 10^3/uL MPV 12.2 H (7.9-10.8) fL Neut # (Auto) 6.0 (1.5-6.6) 10^3/uL Lymph # (Auto) 1.4 L (1.5-3.5) 10^3/uL [place] # (Auto) 0.6 (0.0-1.0) 10^3/uL Eos # (Auto) 0.0 (0.0-0.7) 10^3/uL Baso # (Auto) 0.0 (0.0-0.1) 10^3/uL Absolute Nucleated RBC 0.00 x10^3/uL Nucleated RBC % 0.0 /100WBC Sodium 135 (135-145) mmol/L Potassium 3.8 (3.5-5.0) mmol/L Chloride 107 (101-111) mmol/L Carbon Dioxide 21 (21-32) mmol/L Anion Gap 7.0 (6-13) BUN 9 (6-20) mg/dL Creatinine 0.5 (0.4-1.0) mg/dL Estimated GFR (MDRD) 154 (>89) Glucose 82 (70-100) mg/dL Calcium 8.8 (8.5-10.3) mg/dL Total Bilirubin 0.4 (0.2-1.0) mg/dL AST 18 (10-42) IU/L ALT 11 (10-60) IU/L Alkaline Phosphatase 110 (42-121) IU/L Total Protein 6.7 (6.7-8.2) g/dL Albumin 3.0 L (3.2-5.5) g/dL Globulin 3.7 (2.1-4.2) g/dL Albumin/Globulin Ratio 0.8 L (1.0-2.2) Urine Creatinine 217.6 mg/dL Ur Total Protein Timed 54 mg/dL Protein/Creatinin Ratio 0.2 (<=0.2) Blood Type Antibody Screen 09/10/22 Range/Units 12:15 WBC (4.8-10.8) x10^3/uL RBC (4.20-5.40) 10^6/uL Hgb (12.0-16.0) g/dL Hct (37.0-47.0) % MCV (81.0-99.0) fL MCH (27.0-31.0) pg MCHC (32.0-36.0) g/dL RDW (12.0-15.0) % Plt Count (130-450) 10^3/uL MPV (7.9-10.8) fL Neut # (Auto) (1.5-6.6) 10^3/uL Lymph # (Auto) (1.5-3.5) 10^3/uL [place] # (Auto) (0.0-1.0) 10^3/uL Eos # (Auto) (0.0-0.7) 10^3/uL Baso # (Auto) (0.0-0.1) 10^3/uL Absolute Nucleated RBC x10^3/uL Nucleated RBC % /100WBC Sodium (135-145) mmol/L Potassium (3.5-5.0) mmol/L Chloride (101-111) mmol/L Carbon Dioxide (21-32) mmol/L Anion Gap (6-13) BUN (6-20) mg/dL Creatinine (0.4-1.0) mg/dL Estimated GFR (MDRD) (>89) Glucose (70-100) mg/dL Calcium (8.5-10.3) mg/dL Total Bilirubin (0.2-1.0) mg/dL AST (10-42) IU/L ALT (10-60) IU/L Alkaline Phosphatase (42-121) IU/L Total Protein (6.7-8.2) g/dL Albumin (3.2-5.5) g/dL Globulin (2.1-4.2) g/dL Albumin/Globulin Ratio (1.0-2.2) Urine Creatinine mg/dL Ur Total Protein Timed mg/dL Protein/Creatinin Ratio (<=0.2) Blood Type O POSITIVE Antibody Screen NEGATIVE Assessment/Plan - Problem List (2) Encounter for elective induction of labor Impression: Plan: It has been 3 hours since the 25 mcg Cytotec was placed and bedside ultrasound shows adequate amount of fluid and vertex presentation was noted. movements with breathing were also seen and cervix has not been changed. Since it has been 3 hours 50 mcg of Cytotec will be inserted and further monitor ing is required
--- NOTE | 2022-09-10 20:21 | PROVIDER PROGRESS NOTE ---
Progress Note She felt little more contractions after 50 mcg of Cytotec. As we discussed before she agreed to have induction of labor risk, benefits and alternative reviewed. Discussed cervical ripening options and need for this if [place] Angel score is less than 8. Discussed if [place] score above 8 then can proceed with induction of labor. Inductions is always performed with Pitocin through the IV and artificial rupture of membranes. Discussed risk and benefit of both. Risk of failed induction and possible need for was reviewed. Procedure: The procedure of balloon placement has been discussed with the patient, including benefits and risk. She also understands the possibility of awaiting spontaneous labor. She consents to a labor induction preceded by balloon cervical ripening. Patient in lithotomy. Consent obtained. Speculum placed, cervix identified. Blueliv balloon placed into cervix without difficulty. Uterine balloon filled with a 60 cc sterile water.. Vaginal balloon also filled with 60 cc sterile water, tolerated well. [facility] Cat 1. This balloon will be removed at 6:00 AM.
[2022-09-10] MEDS: fentaNYL 100 MCG/2 ML VIAL IVP PRN ×2 (21:22→23:32)
[2022-09-10] MEDS: SODIUM CHLORIDE FLUSH 0.9% 10 ML SYRINGE IVP SCH ×2 (21:25→23:34)
[2022-09-10] MEDS: LACTATED RINGERS 1,000 ML IV SCH (22:49)
[2022-09-11] MEDS: fentaNYL 100 MCG/2 ML VIAL IVP PRN ×2 (01:57→11:44)
[2022-09-11] MEDS: SODIUM CHLORIDE FLUSH 0.9% 10 ML SYRINGE IVP SCH (02:00)
--- NOTE | 2022-09-11 03:29 | PROVIDER PROGRESS NOTE ---
Progress Note I was reported the occurrence of tachysterol with pain that was not relieved by IV fentanyl. The balloon was removed and tachysterol with the pain was markedly reduced. Cervical examination revealed 2.5 cm cervix with 50% effacement at -3 station. Since she was relieved immediately after removal of the balloon. we are going to give her 2 hours of rest and will consider using oral Cytotec 25 mcg again. During this monitoring, heart rate was remained as category 1
--- NOTE | 2022-09-11 05:18 | PROVIDER PROGRESS NOTE ---
Subjective - Prog Note Date Prog Note Date: 09/11/22 Prog Note Time: 05:14 - Subjective Pt reports feeling: Improved (She still has contraction every 3 to 4 minutes but she is able to take some rest. Originally I was going to add sublingual cytotec but I do not think she needs that at this time.I am going to check her again couple of hours and if she needs to have any help to develop better quality of contractions) Subjective: She is still has 3 to 4 minutes apart uterine contractions but she is able to take a rest. heart tones remain category 1 Objective - Vital Signs/Intake & Output Intake & Output: Intake & Output 09/08/22 09/09/22 09/10/22 09/11/22 23:59 23:59 23:59 23:59 Intake Total 300 1400 Output Total 1 Balance 299 1400 - Lab Results Fish Bones: 09/10/22 12:15 09/10/22 12:15 Other Labs: Lab Results x24hrs 09/10/22 09/10/22 09/10/22 Range/Units 13:30 12:15 12:15 WBC 8.1 (4.8-10.8) x10^3/uL RBC 4.15 L (4.20-5.40) 10^6/uL Hgb 11.1 L (12.0-16.0) g/dL Hct 33.7 L (37.0-47.0) % MCV 81.2 (81.0-99.0) fL MCH 26.7 L (27.0-31.0) pg MCHC 32.9 (32.0-36.0) g/dL RDW 13.2 (12.0-15.0) % Plt Count 198 (130-450) 10^3/uL MPV 12.2 H (7.9-10.8) fL Neut # (Auto) 6.0 (1.5-6.6) 10^3/uL Lymph # (Auto) 1.4 L (1.5-3.5) 10^3/uL [place] # (Auto) 0.6 (0.0-1.0) 10^3/uL Eos # (Auto) 0.0 (0.0-0.7) 10^3/uL Baso # (Auto) 0.0 (0.0-0.1) 10^3/uL Absolute Nucleated RBC 0.00 x10^3/uL Nucleated RBC % 0.0 /100WBC Sodium 135 (135-145) mmol/L Potassium 3.8 (3.5-5.0) mmol/L Chloride 107 (101-111) mmol/L Carbon Dioxide 21 (21-32) mmol/L Anion Gap 7.0 (6-13) BUN 9 (6-20) mg/dL Creatinine 0.5 (0.4-1.0) mg/dL Estimated GFR (MDRD) 154 (>89) Glucose 82 (70-100) mg/dL Calcium 8.8 (8.5-10.3) mg/dL Total Bilirubin 0.4 (0.2-1.0) mg/dL AST 18 (10-42) IU/L ALT 11 (10-60) IU/L Alkaline Phosphatase 110 (42-121) IU/L Total Protein 6.7 (6.7-8.2) g/dL Albumin 3.0 L (3.2-5.5) g/dL Globulin 3.7 (2.1-4.2) g/dL Albumin/Globulin Ratio 0.8 L (1.0-2.2) Urine Creatinine 217.6 mg/dL Ur Total Protein Timed 54 mg/dL Protein/Creatinin Ratio 0.2 (<=0.2) Blood Type Antibody Screen 09/10/22 Range/Units 12:15 WBC (4.8-10.8) x10^3/uL RBC (4.20-5.40) 10^6/uL Hgb (12.0-16.0) g/dL Hct (37.0-47.0) % MCV (81.0-99.0) fL MCH (27.0-31.0) pg MCHC (32.0-36.0) g/dL RDW (12.0-15.0) % Plt Count (130-450) 10^3/uL MPV (7.9-10.8) fL Neut # (Auto) (1.5-6.6) 10^3/uL Lymph # (Auto) (1.5-3.5) 10^3/uL [place] # (Auto) (0.0-1.0) 10^3/uL Eos # (Auto) (0.0-0.7) 10^3/uL Baso # (Auto) (0.0-0.1) 10^3/uL Absolute Nucleated RBC x10^3/uL Nucleated RBC % /100WBC Sodium (135-145) mmol/L Potassium (3.5-5.0) mmol/L Chloride (101-111) mmol/L Carbon Dioxide (21-32) mmol/L Anion Gap (6-13) BUN (6-20) mg/dL Creatinine (0.4-1.0) mg/dL Estimated GFR (MDRD) (>89) Glucose (70-100) mg/dL Calcium (8.5-10.3) mg/dL Total Bilirubin (0.2-1.0) mg/dL AST (10-42) IU/L ALT (10-60) IU/L Alkaline Phosphatase (42-121) IU/L Total Protein (6.7-8.2) g/dL Albumin (3.2-5.5) g/dL Globulin (2.1-4.2) g/dL Albumin/Globulin Ratio (1.0-2.2) Urine Creatinine mg/dL Ur Total Protein Timed mg/dL Protein/Creatinin Ratio (<=0.2) Blood Type O POSITIVE Antibody Screen NEGATIVE
[2022-09-11] MEDS: miSOPROStoL 100 MCG TABLET VG SCH (07:41)
--- NOTE | 2022-09-11 07:46 | PROVIDER PROGRESS NOTE ---
Subjective - Prog Note Date Prog Note Date: 09/11/22 Prog Note Time: 07:44 - Subjective Pt reports feeling: No change (Her contraction became more irregular and mild. She was able to rest well. heart tone has been stable and remained category 1. Pelvic examination revealed not much change. Cytotec 50 mcg milligram placed in the vagina without much difficulty.) Subjective: We will recheck her 3 to 4 hours and then Will decide whether she needs to have redose or Pitocin. Since she developed tachystole earlier we are going to monitor her more closely. Objective - Vital Signs/Intake & Output Intake & Output: Intake & Output 09/08/22 09/09/22 09/10/22 09/11/22 23:59 23:59 23:59 23:59 Intake Total 300 1400 Output Total 1 Balance 299 1400 - Lab Results Fish Bones: 09/10/22 12:15 09/10/22 12:15 Other Labs: Lab Results x24hrs 09/10/22 09/10/22 09/10/22 Range/Units 13:30 12:15 12:15 WBC 8.1 (4.8-10.8) x10^3/uL RBC 4.15 L (4.20-5.40) 10^6/uL Hgb 11.1 L (12.0-16.0) g/dL Hct 33.7 L (37.0-47.0) % MCV 81.2 (81.0-99.0) fL MCH 26.7 L (27.0-31.0) pg MCHC 32.9 (32.0-36.0) g/dL RDW 13.2 (12.0-15.0) % Plt Count 198 (130-450) 10^3/uL MPV 12.2 H (7.9-10.8) fL Neut # (Auto) 6.0 (1.5-6.6) 10^3/uL Lymph # (Auto) 1.4 L (1.5-3.5) 10^3/uL [place] # (Auto) 0.6 (0.0-1.0) 10^3/uL Eos # (Auto) 0.0 (0.0-0.7) 10^3/uL Baso # (Auto) 0.0 (0.0-0.1) 10^3/uL Absolute Nucleated RBC 0.00 x10^3/uL Nucleated RBC % 0.0 /100WBC Sodium 135 (135-145) mmol/L Potassium 3.8 (3.5-5.0) mmol/L Chloride 107 (101-111) mmol/L Carbon Dioxide 21 (21-32) mmol/L Anion Gap 7.0 (6-13) BUN 9 (6-20) mg/dL Creatinine 0.5 (0.4-1.0) mg/dL Estimated GFR (MDRD) 154 (>89) Glucose 82 (70-100) mg/dL Calcium 8.8 (8.5-10.3) mg/dL Total Bilirubin 0.4 (0.2-1.0) mg/dL AST 18 (10-42) IU/L ALT 11 (10-60) IU/L Alkaline Phosphatase 110 (42-121) IU/L Total Protein 6.7 (6.7-8.2) g/dL Albumin 3.0 L (3.2-5.5) g/dL Globulin 3.7 (2.1-4.2) g/dL Albumin/Globulin Ratio 0.8 L (1.0-2.2) Urine Creatinine 217.6 mg/dL Ur Total Protein Timed 54 mg/dL Protein/Creatinin Ratio 0.2 (<=0.2) Blood Type Antibody Screen 09/10/22 Range/Units 12:15 WBC (4.8-10.8) x10^3/uL RBC (4.20-5.40) 10^6/uL Hgb (12.0-16.0) g/dL Hct (37.0-47.0) % MCV (81.0-99.0) fL MCH (27.0-31.0) pg MCHC (32.0-36.0) g/dL RDW (12.0-15.0) % Plt Count (130-450) 10^3/uL MPV (7.9-10.8) fL Neut # (Auto) (1.5-6.6) 10^3/uL Lymph # (Auto) (1.5-3.5) 10^3/uL [place] # (Auto) (0.0-1.0) 10^3/uL Eos # (Auto) (0.0-0.7) 10^3/uL Baso # (Auto) (0.0-0.1) 10^3/uL Absolute Nucleated RBC x10^3/uL Nucleated RBC % /100WBC Sodium (135-145) mmol/L Potassium (3.5-5.0) mmol/L Chloride (101-111) mmol/L Carbon Dioxide (21-32) mmol/L Anion Gap (6-13) BUN (6-20) mg/dL Creatinine (0.4-1.0) mg/dL Estimated GFR (MDRD) (>89) Glucose (70-100) mg/dL Calcium (8.5-10.3) mg/dL Total Bilirubin (0.2-1.0) mg/dL AST (10-42) IU/L ALT (10-60) IU/L Alkaline Phosphatase (42-121) IU/L Total Protein (6.7-8.2) g/dL Albumin (3.2-5.5) g/dL Globulin (2.1-4.2) g/dL Albumin/Globulin Ratio (1.0-2.2) Urine Creatinine mg/dL Ur Total Protein Timed mg/dL Protein/Creatinin Ratio (<=0.2) Blood Type O POSITIVE Antibody Screen NEGATIVE
--- NOTE | 2022-09-11 10:52 | PROVIDER PROGRESS NOTE ---
Progress Note She feels more contractions and she thought that water bag ruptured. FHT still category 1. AROM was discussed, explained to her and her and they consented. Cervix 3 cm 70% effaced and -1 station. Amniotomy was done without difficulty and it yielded copious clear fluid. No meconium was noted. We are going to start Pitocin and pain management will be provided on her request.
[2022-09-11] MEDS: LACTATED RINGERS 1,000 ML IV SCH (12:00)
--- NOTE | 2022-09-11 12:11 | PROVIDER PROGRESS NOTE ---
Progress Note She developed spontaneous uterine contractions and she is requesting an epidural placement due to intensity of the contractions. She was given IV fentanyl but it has not helped her much. heart tone shows a still category 1. We are not going to start Pitocin at this time because of her spontaneous contractions. We will check again after epidural placement
[2022-09-11] MEDS ORDERED: ROPIVACAINE 0.2% 200 MG/100 ML BAG EP ONE (12:24)
[2022-09-11] MEDS ORDERED: fentaNYL 100 MCG/2 ML VIAL ONE (12:46)
[2022-09-11] MEDS ORDERED: SODIUM CHLORIDE 0.9% 10 ML VIAL IVP ONE (12:46)
--- NOTE | 2022-09-11 12:54 | ANESTHESIA ---
Pre-Anesthesia VS, & Labs - Diagnosis Active labor - Procedure vaginal delivery Vital Signs: Temp Pulse Resp BP Pulse Ox O2 Flow Rate 36.8 C 98 16 09/10/22 12:22 09/10/22 12:22 09/10/22 12:22 Height: 5 ft 4 in Weight (kg): 92.533 kg Body Mass Index: 35.0 BMI Classification: Obese - NPO Other (clear liquids) - Is Patient ?: Yes - Lab Results Current Lab Results: Laboratory Tests 09/10/22 12:15: Sodium 135, Potassium 3.8, Chloride 107, Carbon Dioxide 21, Anion Gap 7.0, BUN 9, Creatinine 0.5, Estimated GFR (MDRD) 154, Glucose 82, Calcium 8.8, Total Bilirubin 0.4, AST 18, ALT 11, Alkaline Phosphatase 110, Total Protein 6.7, Albumin 3.0 L, Globulin 3.7, Albumin/Globulin Ratio 0.8 L 09/10/22 12:15: WBC 8.1, RBC 4.15 L, Hgb 11.1 L, Hct 33.7 L, MCV 81.2, MCH 26.7 L, MCHC 32.9, RDW 13.2, Plt Count 198, MPV 12.2 H, Neut # (Auto) 6.0, Lymph # (Auto) 1.4 L, [place] # (Auto) 0.6, Eos # (Auto) 0.0, Baso # (Auto) 0.0, Absolute Nucleated RBC 0.00, Nucleated RBC % 0.0 09/10/22 12:15: Blood Type O POSITIVE, Antibody Screen NEGATIVE Fish Bones: 09/10/22 12:15 09/10/22 12:15 Home Medications and Allergies Active Medications Carboprost Tromethamine (Carboprost Tromethamine 250 Mcg/Ml Amp) 250 mcg IM .ONCE PRN PRN Reason: Hemorrhage Hydralazine HCl (Hydralazine Inj 20 Mg/Ml Vial) 5 - 10 mg IVP Q20M PRN; Protocol PRN Reason: SBP> or= 160 OR DBP> or= 110 Hydralazine HCl (Hydralazine Inj 20 Mg/Ml Vial) 10 mg IVP .ONCE PRN; Protocol PRN Reason: SBP> or= 160 OR DBP> or= 110 Oxytocin/Sodium Chloride (Pitocin/Sodium Chloride) 500 mls @ 999 mls/hr IV PRN PRN; Protocol PRN Reason: POST- HEMORR PREVENTION Tranexamic Acid (Tranexamic 1,000 Mg/100ml-Nacl) 1,000 mg in 100 mls @ 600 mls/hr IV Q30M PRN PRN Reason: EBL >1200mL and within 3hr Lactated Ringer's (Lr) 1,000 mls @ 125 mls/hr IV .Q8H [facility] Last Infusion: 09/11/22 03:03 Dose: Infused Labetalol HCl (Labetalol 20 Mg/4 Ml Syringe) 20 - 80 mg IVP Q10M PRN; Protocol PRN Reason: SBP> or= 160 OR DBP> or= 110 Labetalol HCl (Labetalol 20 Mg/4 Ml Syringe) 20 mg IVP .ONCE PRN; Protocol PRN Reason: SBP> or= 160 OR DBP> or= 110 Labetalol HCl (Labetalol 20 Mg/4 Ml Syringe) 20 - 40 mg IVP Q10M PRN; Protocol PRN Reason: SBP> or= 160 OR DBP> or= 110 Lidocaine HCl (Lidocaine 1% 20 Ml Mdv) 20 ml ID .ONCE PRN PRN Reason: PERINEAL REPAIR Stop: 09/13/22 11:41 Methylergonovine Maleate (Methylergonovine 0.2 Mg/Ml Vial) 0.2 mg IM .ONCE PRN PRN Reason: Hemorrhage Misoprostol (Misoprostol 200 Mcg Tablet) 600 mcg BC .ONCE PRN PRN Reason: Hemorrhage Misoprostol (Misoprostol 200 Mcg Tablet) 800 mcg UT .ONCE PRN PRN Reason: Hemorrhage Misoprostol (Misoprostol 100 Mcg Tablet) 50 mcg VG Q4H [facility] Last Admin: 09/11/22 07:41 Dose: 50 mcg Nifedipine (Nifedipine 10 Mg Capsule) 10 - 20 mg PO Q20M PRN; Protocol PRN Reason: SBP> or= 160 OR DBP> or= 110 Oxytocin (Oxytocin 10 Unit/Ml Vial) 10 unit IM .ONCE PRN PRN Reason: Step One if no IV access. Sodium Chloride (Sodium Chloride Flush 0.9% 10 Ml Syringe) 10 ml IVP PRN PRN PRN Reason: NEEDED PER PROVIDER ORDERS Sodium Chloride (Sodium Chloride Flush 0.9% 10 Ml Syringe) 10 ml IVP Q8H [facility] Last Admin: 09/11/22 02:00 Dose: 10 ml Terbutaline Sulfate (Terbutaline 1 Mg/Ml Vial) 0.25 mg SUBQ .ONCE PRN PRN Reason: Tachystole No Known Home Medications 05/15/22 Allergies/Adverse Reactions: Allergies Allergy/AdvReac Type Severity Reaction Status Date / Time No Known Drug Allergies Allergy Verified 05/16/22 19:43 Anes History & Medical History - Anesthetic History Anesthesia Complications: reports: No previous complications Family history of Anesthesia Complications: Denies Family history of Malignant Hyperthermia: Denies - Medical History Cardiovascular: reports: None Pulmonary: reports: None Gastrointestinal: reports: None Urinary: reports: None Neuro: reports: None Musculoskeletal: reports: None Endocrine/Autoimmune: reports: None Blood Disorders: reports: None Skin: reports: None Smoking Status: Never smoker Psychosocial: reports: No issues indicated History of Cancer?: No - Obstetrical History : 2 Parity: 0 Events: reports: induced HTN Exam General: Alert, Oriented x3, Cooperative, No acute distress Dental: WNL Mouth Openin Fingerbreadth Neck Mobility: Normal Mallampati classification: II Thyromental Distance: 4-6 cm Mental/Cognitive Status: Alert/Oriented X3, Normal for patient Plan Anesthesia Type: Epidural Consent for Procedure(s) Verified and Reviewed: Yes Code Status: Attempt Resuscitation ASA classification: 2-Mild systemic disease Is this case an emergency?: No
[2022-09-11] MEDS ORDERED: NALOXONE 0.4 MG/ML VIAL IVP PRN (12:55)
[2022-09-11] MEDS ORDERED: ROPIVACAINE 0.2% 200 MG/100 ML BAG EP PRN (12:55)
--- NOTE | 2022-09-11 13:10 | PROVIDER PROGRESS NOTE ---
Subjective - Prog Note Date Prog Note Date: 09/11/22 Prog Note Time: 13:09 - Subjective Pt reports feeling: Improved (Epidural has been placed successfully She is very comfortable Pitocin will be initiated.) Objective - Vital Signs/Intake & Output Intake & Output: Intake & Output 09/08/22 09/09/22 09/10/22 09/11/22 23:59 23:59 23:59 23:59 Intake Total 300 1500 Output Total 1 1 Balance 299 1499 - Lab Results Fish Bones: 09/10/22 12:15 09/10/22 12:15 Other Labs: Lab Results x24hrs 09/10/22 09/10/22 09/10/22 Range/Units 13:30 12:15 12:15 Sodium 135 (135-145) mmol/L Potassium 3.8 (3.5-5.0) mmol/L Chloride 107 (101-111) mmol/L Carbon Dioxide 21 (21-32) mmol/L Anion Gap 7.0 (6-13) BUN 9 (6-20) mg/dL Creatinine 0.5 (0.4-1.0) mg/dL Estimated GFR (MDRD) 154 (>89) Glucose 82 (70-100) mg/dL Calcium 8.8 (8.5-10.3) mg/dL Total Bilirubin 0.4 (0.2-1.0) mg/dL AST 18 (10-42) IU/L ALT 11 (10-60) IU/L Alkaline Phosphatase 110 (42-121) IU/L Total Protein 6.7 (6.7-8.2) g/dL Albumin 3.0 L (3.2-5.5) g/dL Globulin 3.7 (2.1-4.2) g/dL Albumin/Globulin Ratio 0.8 L (1.0-2.2) Urine Creatinine 217.6 mg/dL Ur Total Protein Timed 54 mg/dL Protein/Creatinin Ratio 0.2 (<=0.2) Blood Type O POSITIVE Antibody Screen NEGATIVE
[2022-09-11] MEDS ORDERED: OXYTOCIN/SODIUM CHLORIDE 500 ML IV SCH (14:00)
--- NOTE | 2022-09-11 14:24 | PROVIDER PROGRESS NOTE ---
Subjective - Prog Note Date Prog Note Date: 09/11/22 Prog Note Time: 14:23 - Subjective Pt reports feeling: Improved (Epidural is very effective RN checked her when she insert the Gupta catheter. He was reported as cervix 5 to 6 cm at 0 station with 100% effacement. heart tone still category 1) Objective - Vital Signs/Intake & Output Intake & Output: Intake & Output 09/08/22 09/09/22 09/10/22 09/11/22 23:59 23:59 23:59 23:59 Intake Total 300 1500 Output Total 1 201 Balance 299 1299 - Lab Results Fish Bones: 09/10/22 12:15 09/10/22 12:15
--- NOTE | 2022-09-11 17:29 | DELIVERY NOTE ---
Delivery Note - Labor Labor: positive: Induced by oxytocin - Infant Delivery Method Delivery Method: positive: Spontaneous vaginal delivery - Cervical Ripening Method Cervical Ripening Method: positive: Balloon device, Misoprostil, Oxytocin - Presentation Presentation: positive: Vertex - Nuchal Cord Nuchal Cord: positive: None - Amniotic Fluid Description Amniotic Fluid Description: positive: Clear - Episiotomy Type Episiotomy Type: positive: None - Laceration Laceration: positive: None - Delivery Outcome Delivery Outcome: positive: Livebirth - Cades Cades: positive: Placed in direct skin contact with mother, Bulb syringe sex: positive: Female - Cord Cord: positive: 3 vessels - Placenta Placenta: positive: Intact, Spontaneous - Estimated Blood Loss Estimated Blood Loss (in cc): 100 - Post Delivery Events Post Delivery Events: positive: No post delivery events - Delivery Comments (Free Text/Narrative) Delivery Comments (Free Text/Narrative): Delivery Summary: Patient was placed in the dorsal lithotomy position. Upon maternal pushing the head was delivered atraumatically followed by the anterior shoulder, posterior shoulder, then the remainder of the infant's body. A female infant was delivered with APGARS of 9 at 1 minute and 9 at 5 minutes. The infant was placed on its mother's chest . After the cord finished pulsating, the umbilical cord was clamped times two and cut. The placenta delivered intact with three vessel cord. Placenta was not sent to pathology. Thirty units of Pitocin were added to the IV fluid and allowed to run freely. Uterine massage was performed until uterus was deemed firm. Upon inspection of the perineum, vagina and cervix were intact. Upon re- inspection the patient was hemostatic. Uterus again massaged and found to be firm. Needle and sponge counts were correct. Patient was stable and allowed to recover in L&D room. was stable and remained in room with mother. weight is pending at this time.
[2022-09-11] MEDS: IBUPROFEN 600 MG TABLET PO SCH ×2 (18:39→23:47)
[2022-09-11] MEDS: ACETAMINOPHEN 325 MG TABLET PO PRN ×2 (19:33→23:47)
[2022-09-12] MEDS: ACETAMINOPHEN 325 MG TABLET PO PRN (06:03)
[2022-09-12] MEDS: IBUPROFEN 600 MG TABLET PO SCH ×3 (06:04→17:55)
[2022-09-12 06:21] LABS: BASOPHILS % (AUTO) 0.2 %; EOSINOPHILS % (AUTO) 0.4 %; HCT - HEMATOCRIT 33.2 % (37.0-47.0); HGB - HEMOGLOBIN 10.7 g/dL (12.0-16.0); LYMPHOCYTES # (AUTO) 1.7 10^3/uL (1.5-3.5); LYMPHOCYTES % (AUTO) 18.1 %; MEAN CORPUSCULAR HEMOGLOBIN 26.8 pg (27.0-31.0); MEAN CORPUSCULAR HGB CONC 32.2 g/dL (32.0-36.0); MEAN PLATELET VOLUME 12.1 fL (7.9-10.8); MONOCYTES # (AUTO) 0.7 10^3/uL (0.0-1.0); MONOCYTES % (AUTO) 7.2 %; NEUTROPHILS % (AUTO) 73.8 %; PLT - PLATELET COUNT 187 10^3/uL (130-450); RED CELL DISTRIBUTION WIDTH 13.2 % (12.0-15.0); WHITE BLOOD COUNT 9.5 x10^3/uL (4.8-10.8)
--- NOTE | 2022-09-12 09:50 | PROVIDER PROGRESS NOTE ---
Subjective - Subjective Subjective: Subjective Patient reports she is doing well. Lochia appropriate. Denies heavy bleeding. Ambulating. Pelvic and abdominal pain well-controlled. Tolerating oral intake. Diet: Regular. Voiding without difficulty. Passing flatus. Denies BM. Baby currently in nursery with TTN, making slow transition Denies feeling lightheaded, dizzy or excessively fatigued. Objective General: Alert, oriented, no apparent distress. Cardiovascular: Regular rate. Regular rhythm. Lungs: No increased work of breathing. Abdomen: Uterus firm. Below umbilicus. No guarding or rebound. Extremities: No pain on palpation. No cords palpated. Distal pulses intact. Assessment and Plan day 1. -Routine care -Possible discharge later today. Chronic hypertension -Since delivery, come down. Currently 119/76. Objective - Vital Signs/Intake & Output Vital Signs: Vital Signs x48h Temp Pulse Resp BP Pulse Ox 09/12/22 05:55 98.1 F 79 14 119/76 98 09/12/22 03:15 144/84 H 09/12/22 02:00 98.4 F 84 18 151/93 H 99 Intake & Output: Intake & Output 09/09/22 09/10/22 09/11/22 09/12/22 23:59 23:59 23:59 23:59 Intake Total 300 2666.067 0 Output Total 1 1376 Balance 299 1290.067 0 - Lab Results Fish Bones: 09/12/22 06:05 09/10/22 12:15 Other Labs: Lab Results x24hrs 09/12/22 Range/Units 06:05 WBC 9.5 (4.8-10.8) x10^3/uL RBC 4.00 L (4.20-5.40) 10^6/uL Hgb 10.7 L (12.0-16.0) g/dL Hct 33.2 L (37.0-47.0) % MCV 83.0 (81.0-99.0) fL MCH 26.8 L (27.0-31.0) pg MCHC 32.2 (32.0-36.0) g/dL RDW 13.2 (12.0-15.0) % Plt Count 187 (130-450) 10^3/uL MPV 12.1 H (7.9-10.8) fL Neut # (Auto) 7.0 H (1.5-6.6) 10^3/uL Lymph # (Auto) 1.7 (1.5-3.5) 10^3/uL [place] # (Auto) 0.7 (0.0-1.0) 10^3/uL Eos # (Auto) 0.0 (0.0-0.7) 10^3/uL Baso # (Auto) 0.0 (0.0-0.1) 10^3/uL Absolute Nucleated RBC 0.00 x10^3/uL Nucleated RBC % 0.0 /100WBC
[2022-09-12] MEDS ORDERED: ACETAMINOPHEN 325 MG TABLET PO SCH (12:00)
[2022-09-12] MEDS ORDERED: ACETAMINOPHEN 500 MG TABLET PO ONE (12:02)
[2022-09-12] MEDS: ACETAMINOPHEN 500 MG TABLET PO SCH (17:55)
[2022-09-13] MEDS: IBUPROFEN 600 MG TABLET PO SCH ×2 (00:28→12:05)
[2022-09-13] MEDS: ACETAMINOPHEN 500 MG TABLET PO SCH ×2 (03:03→12:05)
[2022-09-13 09:53] VITALS: BP 143/84
--- NOTE | 2022-09-13 11:32 | DISCHARGE SUMMARY ---
Discharge Summary Admit Date: 09/10/22 Discharge Date: 09/13/22 Discharging Provider: Guevara Coto MD Code Status: Attempt Resuscitation Condition at Discharge: Good Discharge Disposition: 01 Home, Self Care - DIAGNOSES Admission Diagnoses: 37 weeks gestation Chronic hypertension with superimposed preeclampsia without severe features Discharge Diagnoses with Status of Each Condition: 37 weeks gestation: Delivered Chronic hypertension superimposed preeclampsia without severe features: Resolving - HPI History of Present Illness: Subjective Patient reports she is doing well. Lochia appropriate. Denies heavy bleeding. Ambulating. Pelvic and abdominal pain well-controlled. Tolerating oral intake. Diet: Regular. Voiding without difficulty. Passing flatus. Denies BM. Patient is bonding with baby, but difficult as she is in the nursery with high flow oxygen due to TTN Pumping, but providing milk to baby Denies feeling lightheaded, dizzy or excessively fatigued. Objective Temp Pulse Resp BP Pulse Ox O2 Flow Rate 98.2 F 73 16 143/84 H 96 09/13/22 09:35 09/13/22 09:35 09/13/22 09:35 09/13/22 09:35 09/13/22 09:35 General: Alert, oriented, no apparent distress. Cardiovascular: Regular rate. Regular rhythm. Lungs: No increased work of breathing. Abdomen: Uterus firm. Below umbilicus. No guarding or rebound. Extremities: No pain on palpation. No cords palpated. Distal pulses intact. - HOSPITAL COURSE Hospital Course: Patient was admitted at 37 weeks gestation for chronic hypertension with superimposed preeclampsia with worsening blood pressures. She received misoprostol followed by a Gupta balloon. Then had amniotomy and oxytocin use. She had an uncomplicated spontaneous vaginal delivery. course was unremarkable for her, however her remained admitted for oxygen therapy for transient tachypnea of the . Mother was discharged on day 2 remained in hospital with her . - ALLERGIES Allergies/Adverse Reactions: Allergies Allergy/AdvReac Type Severity Reaction Status Date / Time No Known Drug Allergies Allergy Verified 05/16/22 19:43 - MEDICATIONS Home Medications: Ambulatory Orders Medication Instructions Recorded Confirmed Acetaminophen [Acetaminophen Extra 1,000 mg PO Q8H PRN #60 tablet 09/12/22 Strength] Docusate Sodium 100Mg Capsule 100 - 200 mg PO BID PRN #60 cap 09/12/22 [Colace 100Mg Capsule] Ibuprofen [Motrin] 600 mg PO Q6H PRN #30 tab 09/12/22 - LABS Result Diagrams: 09/12/22 06:05 09/10/22 12:15 - FOLLOW UP Follow Up: With Guevara Coto MD in 1 week at [facility] - TIME SPENT Time Spent in Discharge (Minutes): 30
--- NOTE | 2022-09-13 11:34 | Discharge Plan ---
Discharge Plan Problem Reviewed?: Yes Disposition: Home, Self Care Condition: Good Prescriptions: Acetaminophen [Acetaminophen Extra Strength] 1,000 mg PO Q8H PRN #60 tablet PRN Reason: Pain Docusate Sodium 100Mg Capsule [Colace 100Mg Capsule] 100 - 200 mg PO BID PRN #60 cap PRN Reason: Constipation Ibuprofen [Motrin] 600 mg PO Q6H PRN #30 tab PRN Reason: Pain Diet: Regular Activity Restrictions: Additional Comments Shower Restrictions: No Instruction Topics: Vaginal After, Preeclampsia No Smoking: If you smoke, Please STOP! Call for help. Follow-up with: Guevara Coto MD [Provider Admit Priv/Credential] -
--- NOTE | 2022-09-13 16:59 | Labor Flowsheet ---
Labor Flowsheet Datetime Report Generated by CPN: 09/13/2022 16:59 Datetime: 09/13/2022 09:42 VITAL SIGNS NBP Sys/Yesi/Mean (mmHg): 143 : 84 : 98 Pulse: 76 Datetime: 09/12/2022 16:00 SpO2 (%): 100 Datetime: 09/11/2022 19:21 Communication Comments: SBAR to RN Stobaugh/RN Lamine Datetime: 09/11/2022 19:15 Stage of : Recovery PAIN Pain Scale: 0 Pain Presence: None/Denies Datetime: 09/11/2022 19:03 Epidural Procedure Other: Cath Removed; Cath Intact Anesthesia Comments: black tip intact Datetime: 09/11/2022 18:00 Respirations: 18 Datetime: 09/11/2022 17:45 Temperature (C): 37.4 Temperature Route: Axillary Datetime: 09/11/2022 17:18 Medication Comments: Pit bolus started Datetime: 09/11/2022 17:00 LaborFlag: Labor Datetime: 09/11/2022 16:56 VAGINAL EXAM Dilatation (cm): 10.0 Effacement (%): 100 Station: 3 Exam by: RN Anna Datetime: 09/11/2022 16:41 MEDICATIONS Pitocin (milliunits): Decreased to @ 3 Datetime: 09/11/2022 16:39 Patient Care Comments: Pt c/o pressure with ctxs Datetime: 09/11/2022 16:30 UTERINE ACTIVITY Monitor Mode: External Frequency (min): 2-4 Quality: Moderate Duration (sec): 50-70 Pattern: Normal: <= 5 Contractions in 10 Minutes Resting Tone (Palpate): Relaxed Pitocin Checklist: At Least 1 Acceleration of 15 bpm x 15 Seconds in 30 Minutes or Adequate Variabi lity; No More than 1 Late Deceleration Occurred in Past 30 Minutes; No More than 2 Variable Decelerat ions > 60 Seconds in Duration and decreasing >60 bpm in 30 minutes; No More than 5 Uterine Contractio ns in 10 Minutes for any 20 Minute Interval; Uterus Palpates Soft between Contractions Contraction Comments: inverted ctxs on monitor ASSESSMENT A Monitor Mode: Telemetry FHR Baseline Rate : 135 Variability: Moderate 6-25 bpm Accelerations: 15X15 Decelerations: None Category: Category I Datetime: 09/11/2022 16:25 Monitor Interventions for UA: [place] Adjusted Datetime: 09/11/2022 15:28 PATIENT CARE IV/Blood Work: IV Bolus Given ml @ 400/hr Datetime: 09/11/2022 15:00 Monitor Interventions for FHR: Ultrasound Adjusted Datetime: 09/11/2022 14:01 Pain Coping: Sleeping Datetime: 09/11/2022 14:00 Pain Type: Cramping Pain Location: Abdomen Datetime: 09/11/2022 13:25 I/O Interventions: Gupta Cath Inserted Datetime: 09/11/2022 12:55 Pain Goal: 6 Datetime: 09/11/2022 12:49 Pain Relief Measures: Epidural Given Datetime: 09/11/2022 12:46 ANESTHESIA Epidural Procedure: Completed Datetime: 09/11/2022 12:38 Patient Position/Activity: Left Tilt Datetime: 09/11/2022 12:23 PROCEDURE TIME OUT Procedure Verify: Correct Patient Identity; Accurate Procedure Consent Form; Agreement on Procedure to be Done; Correct Patient Position; Safety Precautions Based on Patient History or Medication Use Datetime: 09/11/2022 12:22 Pain Assessment Comments: Nitrous off Datetime: 09/11/2022 12:00 MATERNAL ASSESSMENT Level of Consciousness: Alert DTR's/Clonus: DTRs 1+; No Clonus Headache: Denies Nausea/Vomiting: Denies RUQ Epigastric Pain: Denies Datetime: 09/11/2022 10:49 Membrane Status: Ruptured Membranes Rupture Method: Artificial Amniotic Fluid Color: Clear Amniotic Fluid Amount: Moderate Datetime: 09/11/2022 10:26 Vital Sign Comments: Pt standing and rocking during BP check Datetime: 09/11/2022 09:11 Hygiene: Shower Datetime: 09/11/2022 08:29 Comments: UTD accels per monitor Datetime: 09/11/2022 07:41 Cervical Ripening Agents: Gupta Balloon; Cytotec @ Datetime: 09/11/2022 05:10 Provider Reviewed Strip: Yes Strip Reviewed by: Dr. Camejo Notification Reason: Status Update Datetime: 09/11/2022 02:53 COMMUNICATION Communication: Provider at Bedside Datetime: 09/11/2022 02:28 Vaginal Bleeding: Normal Show Cervix, Consistency: Moderate Cervix, Position: Posterior Vaginal Exam Comments: cervical ripening balloon removed per MD telephone order. Cervical Ripening Agents Other: removed Datetime: 09/11/2022 02:24 Provider Notified (Name): Dr. Jyung Datetime: 09/11/2022 01:57 Analgesics/Sedatives: Fentanyl (mcg) @ 50 Comfort Measures: Breathing/Relaxation; Coaching; Family Support Datetime: 09/11/2022 00:54 TEACHING Pain Management: PRN Medications; Pain Scale/Goals; Comfort Measures Teaching Comments: Nitrous admin reviewed with couple Datetime: 09/10/2022 19:00 Nurse Giving Report: RADHA Castillo Nurse Receiving Report: RADHA Carias
== END 2022-09-13 14:00 | disposition home or self-care (01) | DRG 807 ==
LOC: FBP 11:39 → OBSVTOIN 09-11 11:04
PROVIDERS: ADMIT Obstetrics & Gynecology; ATTEND Obstetrics & Gynecology
PROC: 3E0P7VZ Introduction of Hormone into Female Reproductive, Via Natural or Artificial Opening (ICD-10-PCS; 2022-09-10)
PROC: 0U7C7ZZ Dilation of Cervix, Via Natural or Artificial Opening (ICD-10-PCS; 2022-09-10)
PROC: 10E0XZZ Delivery of Products of Conception, External Approach (ICD-10-PCS; principal; 2022-09-11)
PROC: 10907ZC Drainage of Amniotic Fluid, Therapeutic from Products of Conception, Via Natural or Artificial Opening (ICD-10-PCS; 2022-09-11)
DX: O14.94 Unspecified pre-eclampsia, complicating childbirth (principal); Z37.0 Single live birth; Z3A.37 37 weeks gestation of pregnancy; O99.214 Obesity complicating childbirth
CPT/HCPCS: 36415; 80053; 82570; 84156; 85025; 86850; 86900; 86901; A9270; J7120

== ENCOUNTER 2022-09-20 13:58 | Outpatient (CLI) | payer MEDICAID ==
[2022-09-20 14:11] LABS: HCT - HEMATOCRIT 41.7 % (37.0-47.0); HGB - HEMOGLOBIN 13.4 g/dL (12.0-16.0); MEAN CORPUSCULAR HGB CONC 32.1 g/dL (32.0-36.0); MEAN CORPUSCULAR VOLUME 84.1 fL (81.0-99.0); RED BLOOD COUNT 4.96 10^6/uL (4.20-5.40); WHITE BLOOD COUNT 6.8 x10^3/uL (4.8-10.8)
[2022-09-20 14:24] LABS: ALBUMIN 3.8 g/dL (3.2-5.5); BILIRUBIN,TOTAL 0.6 mg/dL (0.2-1.0); CALCIUM 9.2 mg/dL (8.5-10.3); CREATININE 0.7 mg/dL (0.4-1.0); TOTAL PROTEIN 7.5 g/dL (6.7-8.2); URIC ACID 6.3 mg/dL (2.6-7.2)
== END 2022-09-20 13:59 | disposition home or self-care (01) ==
LOC: LAB 13:58
PROVIDERS: ATTEND Nurse Practitioner
DX: O16.9 Unspecified maternal hypertension, unspecified trimester (principal)
CPT/HCPCS: 36415; 80053; 84550; 85027

== ENCOUNTER 2022-10-04 23:03 | Emergency (ER) | payer MEDICAID ==
[2022-10-05 00:15] LABS: BASOPHILS % (AUTO) 0.3 %; EOSINOPHILS # (AUTO) 0.1 10^3/uL (0.0-0.7); EOSINOPHILS % (AUTO) 1.9 %; HCT - HEMATOCRIT 39.8 % (37.0-47.0); HGB - HEMOGLOBIN 12.2 g/dL (12.0-16.0); LYMPHOCYTES # (AUTO) 1.6 10^3/uL (1.5-3.5); MEAN CORPUSCULAR HEMOGLOBIN 25.8 pg (27.0-31.0); MEAN CORPUSCULAR HGB CONC 30.7 g/dL (32.0-36.0); MEAN CORPUSCULAR VOLUME 84.3 fL (81.0-99.0); MONOCYTES # (AUTO) 0.6 10^3/uL (0.0-1.0); MONOCYTES % (AUTO) 8.3 %; NEUTROPHILS # (AUTO) 4.4 10^3/uL (1.5-6.6); NEUTROPHILS % (AUTO) 65.2 %; PLT - PLATELET COUNT 289 10^3/uL (130-450); RED BLOOD COUNT 4.72 10^6/uL (4.20-5.40); RED CELL DISTRIBUTION WIDTH 12.5 % (12.0-15.0); WHITE BLOOD COUNT 6.8 x10^3/uL (4.8-10.8)
[2022-10-05 00:28] LABS: ALBUMIN 3.7 g/dL (3.2-5.5); ALBUMIN/GLOBULIN RATIO 1.1 (1.0-2.2); BILIRUBIN,TOTAL 0.5 mg/dL (0.2-1.0); CALCIUM 8.9 mg/dL (8.5-10.3); CREATININE 0.7 mg/dL (0.4-1.0); POTASSIUM 3.6 mmol/L (3.5-5.0); TOTAL PROTEIN 7.1 g/dL (6.7-8.2)
--- NOTE | 2022-10-05 00:47 | ED Physician Documentation ---
PD HPI ABD PAIN - Stated complaint Stated Complaint: ABD PAIN - Chief complaint Chief Complaint: Abd Pain - History obtained from History obtained from: Patient, Family - Additional information Additional information: The patient comes to the emergency department chief complaint of upper abdominal pain that has been going on for approximately the last month since she gave to her daughter. Patient states that she has also had some tiredness and headaches. She had to deliver at 37 weeks because she had preeclampsia and the baby has been doing well. The patient feels that she has been doing fairly well except for this upper abdominal pain. She states that it flares up whenever she eats any food whatsoever, and can last anywhere from 10 minutes to few hours. The patient denies any gallbladder history. She thinks her mother may have had her gallbladder out when she was young. She denies any vomiting though she does occasionally feel nauseated. No other complaints at this time. The patient has not been in any medicine for her stomach. She did have her visit with Dr. Coto and she says told her that he did not think there was any emergency related to the , in terms of the patient's upper abdominal pain. PD PAST MEDICAL HISTORY - Past Medical History Past Medical History: No Cardiovascular: None Respiratory: None Neuro: None Endocrine/Autoimmune: None GI: None ACTIVITIES AIDE: None : None HEENT: None Psych: None Musculoskeletal: None Derm: None - Present Medications Home Medications: Ambulatory Orders Medication Instructions Recorded Confirmed Acetaminophen [Acetaminophen Extra 1,000 mg PO Q8H PRN #60 tablet 09/12/22 Strength] Docusate Sodium 100Mg Capsule 100 - 200 mg PO BID PRN #60 cap 09/12/22 [Colace 100Mg Capsule] Ibuprofen [Motrin] 600 mg PO Q6H PRN #30 tab 09/12/22 - Allergies Allergies/Adverse Reactions: Allergies Allergy/AdvReac Type Severity Reaction Status Date / Time No Known Drug Allergies Allergy Verified 10/04/22 23:11 - Social History Does the pt smoke?: No Smoking Status: Never smoker Does the pt drink ETOH?: No Does the pt have substance abuse?: No - Immunizations Immunizations are current?: Yes - POLST Patient has POLST: No PD ED PE NORMAL - Vitals Vital signs reviewed: Yes - General General: Alert and oriented X 3, No acute distress, Well developed/nourished - HEENT HEENT: Atraumatic, PERRL, EOMI, Moist mucous membranes - Neck Neck: Supple, no meningeal sign, Thyroid normal - Cardiac Cardiac: RRR, No murmur - Respiratory Respiratory: No respiratory distress, Clear bilaterally - Abdomen Abdomen: Soft, Non distended, Other (Moderate tenderness, superior Epigastric area, no rebound or guarding. No right upper quadrant tenderness.) - Derm Derm: Normal color, Warm and dry, No rash - Extremities Extremities: No deformity, No edema - Neuro Neuro: Alert and oriented X 3 - Psych Psych: Normal mood, Normal affect Results - Vitals Vitals: Vital Signs - 24 hr 10/04/22 10/05/22 23:05 00:52 Temperature 36.4 C L Heart Rate 84 77 Respiratory 16 16 Rate Blood Pressure 141/85 H 132/80 H O2 Saturation 100 100 Oxygen O2 Source Room air - Labs Labs: Laboratory Tests 10/05/22 10/05/22 00:10 00:10 WBC 6.8 RBC 4.72 Hgb 12.2 Hct 39.8 MCV 84.3 MCH 25.8 L MCHC 30.7 L RDW 12.5 Plt Count 289 MPV 10.0 Neut # (Auto) 4.4 Lymph # (Auto) 1.6 [place] # (Auto) 0.6 Eos # (Auto) 0.1 Baso # (Auto) 0.0 Absolute Nucleated RBC 0.00 Nucleated RBC % 0.0 Sodium 139 Potassium 3.6 Chloride 104 Carbon Dioxide 28 Anion Gap 7.0 BUN 11 Creatinine 0.7 Estimated GFR (MDRD) 105 Glucose 96 Calcium 8.9 Total Bilirubin 0.5 AST 14 ALT 16 Alkaline Phosphatase 75 Total Protein 7.1 Albumin 3.7 Globulin 3.4 Albumin/Globulin Ratio 1.1 Lipase 45 PD Medical Decision Making - ED course Complexity details: reviewed results, re-evaluated patient, considered differential, d/w patient, d/w family ED course: The patient was evaluated with laboratory studies, including CBC and CMP, which were unremarkable on evaluation by me. I did not feel there was any indication for emergent, middle of the night imaging for this patient, but I have advised her to follow-up in primary care as soon as possible to help get this sorted out and see if they are willing to schedule an outpatient ultrasound and endoscopy. We have discussed the usual indications for return. Departure - Departure Disposition: 01 Home, Self Care Clinical Impression: Abdominal pain Qualifiers: Abdominal location: upper abdomen, unspecified Qualified Code(s): R10.10 - Upper abdominal pain, unspecified Condition: Stable Instructions: ED Abdominal Pain Female Non-Specific Abdominal Pain Follow-Up: Lashay Epstein ARNP [Provider Admit Priv/Credential] - Ace Phillip MD [Provider Admit Priv/Credential] - Comments: Your laboratory studies tonight look great. Your pain and tenderness are in the area where the stomach and esophagus meet, and most likely, some inflammation in this area is to blame for your symptoms. Your pancreas is close by both your pancreatic labs are normal, indicating that it is unlikely to be the pancreas that is responsible for the symptoms. Additionally, your liver labs are also normal, and while there is a small possibility that the pain is coming from her gallbladder, this would be a very atypical and unusual presentation. Most likely, you have some residual inflammation in the bottom of the esophagus and the top of the stomach, possibly from the repeated reflux she had during . You will need to follow-up in primary care to determine whether you need an endoscopy. Please make the next possible appointment to follow-up. Discharge Date/Time: 10/05/22 00:57
[2022-10-05 00:53] VITALS: BP 132/80
== END 2022-10-05 00:57 | disposition home or self-care (01) ==
LOC: ED 23:03
DX: R10.10 Upper abdominal pain, unspecified (principal)
CPT/HCPCS: 36415; 80053; 83690; 85025; 99283

== ENCOUNTER 2022-10-12 12:14 | Outpatient (CLI) | payer MEDICAID ==
[2022-10-12 12:32] LABS: HCT - HEMATOCRIT 37.3 % (37.0-47.0); HGB - HEMOGLOBIN 12.1 g/dL (12.0-16.0); MEAN CORPUSCULAR HEMOGLOBIN 26.4 pg (27.0-31.0); MEAN CORPUSCULAR HGB CONC 32.4 g/dL (32.0-36.0); MEAN CORPUSCULAR VOLUME 81.4 fL (81.0-99.0); MEAN PLATELET VOLUME 9.5 fL (7.9-10.8); RED BLOOD COUNT 4.58 10^6/uL (4.20-5.40); RED CELL DISTRIBUTION WIDTH 12.6 % (12.0-15.0); WHITE BLOOD COUNT 6.6 x10^3/uL (4.8-10.8)
== END 2022-10-12 12:15 | disposition home or self-care (01) ==
LOC: LAB 12:14
PROVIDERS: ATTEND Nurse Practitioner
DX: N93.9 Abnormal uterine and vaginal bleeding, unspecified (principal); Z32.00 Encounter for pregnancy test, result unknown
CPT/HCPCS: 36415; 82728; 84702; 85027

== ENCOUNTER 2022-10-12 12:27 | Outpatient (CLI) | payer MEDICAID ==
--- NOTE | 2022-10-12 14:47 | Ultrasound Report ---
PROCEDURE: Pelvic Complete INDICATIONS: ABNORMAL UTRINE AND VAGINAL BLEEDING TECHNIQUE: Real-time transabdominal scanning was performed of the pelvic organs, with image documentation. COMPARISON: None. FINDINGS: Uterus: Uterus is normal in size at 8.8 x 6.1 x 6.2 cm. Endometrium measures 10 mm in combined thic kness. No suspicious intrauterine abnormalities or significant fluid collection. No sonographic evid ence to suggest presence of retained products of conception. Ovaries: The right ovary measures 3.7 x 2.5 x 2.2 cm. The left ovary measures 2.9 x 3.5 x 1.9 cm. Ri ght ovarian volume measures 10.7 mL and left ovarian volume measures 10.3 mL. No cystic lesions measu ring greater than 3 cm. Less than 12 follicles are visualized. Other: Small amount of pelvic free fluid in the posterior cul-de-sac. IMPRESSION: Pelvis without acute sonographic abnormalities. No abnormal endometrial thickening or evidence to sug gest retained products of conception. Unremarkable appearance of the bilateral ovaries. Reviewed by: Kwaku Jimenez MD on 10/12/2022 2:46 PM PDT Approved by: Kwaku Jimenez MD on 10/12/2022 2:46 PM PDT Station ID: [id number]
--- NOTE | 2022-10-12 14:48 | Ultrasound Report ---
PROCEDURE: Transvaginal INDICATIONS: ABNORMAL UTRINE AND VAGINAL BLEEDING TECHNIQUE: Real-time endovaginal scanning was performed of the pelvic organs, with image documentation. COMPARISON: None. FINDINGS: Uterus: Uterus is normal in size at 8.8 x 6.1 x 6.2 cm. Endometrium measures 10 mm in combined thic kness. No suspicious intrauterine abnormalities or significant fluid collection. No sonographic evid ence to suggest presence of retained products of conception. Ovaries: The right ovary measures 3.7 x 2.5 x 2.2 cm. The left ovary measures 2.9 x 3.5 x 1.9 cm. Ri ght ovarian volume measures 10.7 mL and left ovarian volume measures 10.3 mL. No cystic lesions measu ring greater than 3 cm. Less than 12 follicles are visualized. Other: Small amount of pelvic free fluid in the posterior cul-de-sac. IMPRESSION: Pelvis without acute sonographic abnormalities. No abnormal endometrial thickening or evidence to sug gest retained products of conception. Unremarkable appearance of the bilateral ovaries. Reviewed by: Kwaku Jimenez MD on 10/12/2022 2:46 PM PDT Approved by: Kwaku Jimenez MD on 10/12/2022 2:46 PM PDT Station ID: [id number]
== END 2022-10-12 12:28 | disposition home or self-care (01) ==
LOC: DI 12:27
PROVIDERS: ATTEND Nurse Practitioner
DX: O72.2 Delayed and secondary postpartum hemorrhage (principal); Z39.1 Encounter for care and examination of lactating mother; Z32.00 Encounter for pregnancy test, result unknown
CPT/HCPCS: 36415; 82728; 84702; 85027

== ENCOUNTER 2022-10-14 19:03 | Emergency (ER) | payer MEDICAID ==
[2022-10-14 19:42] LABS: BASOPHILS % (AUTO) 0.4 %; EOSINOPHILS # (AUTO) 0.2 10^3/uL (0.0-0.7); EOSINOPHILS % (AUTO) 2.1 %; HCT - HEMATOCRIT 35.4 % (37.0-47.0); HGB - HEMOGLOBIN 11.1 g/dL (12.0-16.0); LYMPHOCYTES # (AUTO) 1.8 10^3/uL (1.5-3.5); LYMPHOCYTES % (AUTO) 25.2 %; MEAN CORPUSCULAR HGB CONC 31.4 g/dL (32.0-36.0); MEAN CORPUSCULAR VOLUME 82.9 fL (81.0-99.0); MEAN PLATELET VOLUME 9.7 fL (7.9-10.8); MONOCYTES # (AUTO) 0.5 10^3/uL (0.0-1.0); MONOCYTES % (AUTO) 6.8 %; NEUTROPHILS # (AUTO) 4.6 10^3/uL (1.5-6.6); NEUTROPHILS % (AUTO) 65.2 %; PLT - PLATELET COUNT 368 10^3/uL (130-450); RED BLOOD COUNT 4.27 10^6/uL (4.20-5.40); RED CELL DISTRIBUTION WIDTH 12.5 % (12.0-15.0); WHITE BLOOD COUNT 7.1 x10^3/uL (4.8-10.8)
[2022-10-14 19:51] LABS: ALBUMIN 3.7 g/dL (3.2-5.5); ALBUMIN/GLOBULIN RATIO 1.1 (1.0-2.2); BILIRUBIN,TOTAL 0.5 mg/dL (0.2-1.0); CALCIUM 8.9 mg/dL (8.5-10.3); CREATININE 0.7 mg/dL (0.4-1.0); POTASSIUM 3.7 mmol/L (3.5-5.0); TOTAL PROTEIN 7.1 g/dL (6.7-8.2)
[2022-10-14 19:58] LABS: BILIRUBIN,URINE NEGATIVE (NEGATIVE); GLUCOSE, URINE (UA) NEGATIVE (NEGATIVE); KETONES,URINE (UA) NEGATIVE (NEGATIVE); LEUKOCYTE ESTERASE, URINE NEGATIVE (NEGATIVE); NITRITE,URINE NEGATIVE (NEGATIVE); OCCULT BLOOD,URINE LARGE (NEGATIVE); PROTEIN,URINE 30 mg/dL (NEGATIVE); UROBILINOGEN,URINE 0.2 (NORMAL) E.U./dL (NORMAL)
[2022-10-14 20:01] LABS: CLARITY,URINE HAZY (CLEAR)
--- NOTE | 2022-10-14 20:07 | ED Physician Documentation ---
History of Present Illness - Stated complaint Stated Complaint: RT SIDE PX - Chief complaint Chief Complaint: Abd Pain - Additonal information Additional information: Patient is 22-year-old female approximately 4 weeks presenting with abdominal pain. She is approximately 1 month from induced vaginal delivery secondary to preeclampsia. Since that time has had persistent epigastric and right upper quadrant abdominal pain. Was evaluated in the emergency department 10/04/2022. At that time had reassuring lab work and was referred for outpatient management. Has been seen by primary care and underwent TV and pelvic ultrasound performed 10/12/2022 that was similarly unremarkable. Reports persistent pain that is been ongoing x2 days with 2X episodes nausea vomiting. Reports has taken Tylenol at home with minimal relief. Is currently pumping/breast-feeding. Denies fever, chills, chest pain, shortness of breath, vaginal discharge, dysuria, new onset rash, new onset weakness/numbness/tingling in any extremity. Review of Systems Constitutional: denies: Fever Eyes: denies: Loss of vision Ears: denies: Loss of hearing Nose: denies: Rhinorrhea / runny nose Throat: denies: Dental pain / toothache Cardiac: denies: Chest pain / pressure Respiratory: denies: Dyspnea GI: reports: Abdominal Pain, Nausea, Vomiting : denies: Dysuria Skin: denies: Rash PD PAST MEDICAL HISTORY - Past Medical History Cardiovascular: None Respiratory: None Neuro: None Endocrine/Autoimmune: None GI: None PRINCIPAL ARCHAEOLOGIST: None : None HEENT: None Psych: None Musculoskeletal: None Derm: None - Present Medications Home Medications: Ambulatory Orders Medication Instructions Recorded Confirmed Acetaminophen [Acetaminophen Extra 1,000 mg PO Q8H PRN #60 tablet 09/12/22 Strength] Docusate Sodium 100Mg Capsule 100 - 200 mg PO BID PRN #60 cap 09/12/22 [Colace 100Mg Capsule] Ibuprofen [Motrin] 600 mg PO Q6H PRN #30 tab 09/12/22 Omeprazole 40 mg PO DAILY #30 cap 10/14/22 - Allergies Allergies/Adverse Reactions: Allergies Allergy/AdvReac Type Severity Reaction Status Date / Time No Known Drug Allergies Allergy Verified 10/14/22 19:25 - Social History Does the pt smoke?: No Smoking Status: Never smoker Does the pt drink ETOH?: No Does the pt have substance abuse?: No - Immunizations Immunizations are current?: Yes - POLST Patient has POLST: No PD ED PE NORMAL - Vitals Vital signs reviewed: Yes - General General: Alert and oriented X 3, No acute distress, Well developed/nourished - HEENT HEENT: Atraumatic, PERRL, EOMI, Ears normal, Moist mucous membranes, Pharynx benign - Neck Neck: Supple, no meningeal sign, No bony TTP, No adenopathy, Thyroid normal, No JVD, No bruit - Cardiac Cardiac: RRR, No murmur, No gallop, No rub, Strong equal pulses - Respiratory Respiratory: No respiratory distress - Abdomen Abdomen: Normal bowel sounds, Soft, Non tender (Right upper quadrant) - Female Female : Deferred - Rectal Rectal: Deferred - Back Back: No CVA TTP - Derm Derm: Normal color - Extremities Extremities: No deformity - Neuro Neuro: Alert and oriented X 3, feeder catcher 2-12 intact, No motor deficit, No sensory deficit, Normal speech Results - Vitals Vitals: Vital Signs - 24 hr 10/14/22 10/14/22 19:22 19:52 Temperature 36.8 C Heart Rate 72 67 Respiratory 16 18 Rate Blood Pressure 113/75 117/78 O2 Saturation 98 99 Oxygen O2 Source Room air - Labs Labs: Laboratory Tests 10/14/22 10/14/22 10/14/22 19:34 19:34 19:36 WBC 7.1 RBC 4.27 Hgb 11.1 L Hct 35.4 L MCV 82.9 MCH 26.0 L MCHC 31.4 L RDW 12.5 Plt Count 368 MPV 9.7 Neut # (Auto) 4.6 Lymph # (Auto) 1.8 [place] # (Auto) 0.5 Eos # (Auto) 0.2 Baso # (Auto) 0.0 Absolute Nucleated RBC 0.00 Nucleated RBC % 0.0 Sodium 140 Potassium 3.7 Chloride 106 Carbon Dioxide 26 Anion Gap 8.0 BUN 11 Creatinine 0.7 Estimated GFR (MDRD) 105 Glucose 106 H Calcium 8.9 Total Bilirubin 0.5 AST 14 ALT 12 Alkaline Phosphatase 65 Total Protein 7.1 Albumin 3.7 Globulin 3.4 Albumin/Globulin Ratio 1.1 Lipase 36 Urine Color YELLOW Urine Clarity HAZY Urine pH 6.0 Ur Specific [place] >=1.030 H Urine Protein 30 H Urine Glucose (UA) NEGATIVE Urine Ketones NEGATIVE Urine Occult Blood LARGE H Urine Nitrite NEGATIVE Urine Bilirubin NEGATIVE Urine Urobilinogen 0.2 (NORMAL) Ur Leukocyte Esterase NEGATIVE Urine RBC 11-25 H Urine WBC 0-3 Ur Squamous Epith Cells FEW Squamous Urine Bacteria None Seen Ur Microscopic Review INDICATED Urine Culture Comments NOT INDICATED PD Medical Decision Making - ED course Complexity details: reviewed old records, reviewed results, re-evaluated patient, d/w patient ED course: Patient is 22-year-old female presenting to the emergency department with persistent epigastric and right upper quadrant abdominal pain. Afebrile, hemodynamically stable on arrival to the emergency department. No guarding, rebound, rigidity on abdominal exam that would be suggestive of peritonitis. No specific right lower quadrant tenderness that would be suggestive of appendicitis. Labs obtained demonstrated a mild low level anemia with hemoglobin 11.1. This is down slightly from her most recent 12.1 however looking over her hemoglobins over the course of the last month it does appear that she has been ranging between 11.1 several months ago as well as a high of 12.4. She denied any symptoms of blood in stool or dark tarry stool while in the emergency department. Comprehensive labs did not demonstrate any significant leukocytosis, renal dysfunction, injury to pancreas, hepatic dysfunction or severe electrolyte abnormality. Ultrasonography was negative for acute cholecystitis Or cholelithiasis. Patient currently not on any antiacid medications. To discuss pros and cons of initiating course of pantoprazole including low risk for interference with active breast-feeding. She is agreeable to starting this medication at this time. Will initiate pantoprazole 40 mg p.o. daily. We will have her follow-up with her primary care doctor. Clear return precautions given. Departure - Departure Disposition: Home, Self Care Clinical Impression: Abdominal pain Qualifiers: Abdominal location: unspecified location Qualified Code(s): R10.9 - Unspecified abdominal pain Prescriptions: Omeprazole 40 mg PO DAILY #30 cap
[2022-10-14 20:11] LABS: BACTERIA,URINE None Seen /HPF (None Seen); SQUAMOUS EPITHELIAL CELL,UR FEW Squamous (<= Few); WBC,URINE 0-3 /HPF (0-5)
--- NOTE | 2022-10-14 21:41 | Ultrasound Report ---
PROCEDURE: Abdomen Limited INDICATIONS: RUQ pain TECHNIQUE: Real-time focused scanning was performed of the abdomen, with image documentation. COMPARISONS: None. FINDINGS: Liver: Liver is normal in size without focal hepatic lesions identified. There is mildly increased he patic echogenicity which may reflect mild fatty infiltration. There is patent hepatopedal flow in the main portal vein. Gallbladder: Gallbladder demonstrates no stones, wall thickening, or pericholecystic fluid. Biliary ducts: No intrahepatic or extrahepatic biliary ductal dilatation. Pancreas: The visualized pancreas appears unremarkable sonographically. Right kidney: Right kidney measures 11.3 cm. No hydronephrosis. IMPRESSION: 1. No evidence of cholelithiasis or cholecystitis. Reviewed by: Watson Vega MD on 10/14/2022 9:39 PM PDT Approved by: Watson Vega MD on 10/14/2022 9:39 PM PDT Station ID: [id number]
[2022-10-14] MEDS ORDERED: PANTOPRAZOLE 40 MG TABLET PO STA (22:06)
[2022-10-14 22:10] VITALS: BP 123/93
== END 2022-10-14 22:53 | disposition home or self-care (01) ==
LOC: ED 19:03
DX: O90.89 Other complications of the puerperium, not elsewhere classified (principal); R10.13 Epigastric pain; R10.11 Right upper quadrant pain
CPT/HCPCS: 36415; 76705; 80053; 81001; 83690; 85025; 99283; 99284; A9270; 81003; 87086

== ENCOUNTER 2023-01-04 08:00 | Outpatient (CLI) | payer MEDICAID ==
[2023-01-04 22:50] LABS: BACTERIAL VAGINOSIS DNA NEGATIVE (NEGATIVE); CANDIDA GLABRATA DNA NEGATIVE (NEGATIVE); CANDIDA GROUP DNA NEGATIVE (NEGATIVE); CANDIDA KRUSEI DNA NEGATIVE (NEGATIVE); TRICHOMONAS VAGINALIS DNA NEGATIVE (NEGATIVE)
[2023-01-05 00:44] LABS: CHLAMYDIA TRACHOMATIS DNA NEGATIVE (NEGATIVE)
[2023-01-05 08:39] LABS: NEISSERIA GONORRHOEAE DNA NEGATIVE (NEGATIVE)
== END 2023-01-04 23:59 | disposition home or self-care (01) ==
LOC: LAB.WC 08:00
PROVIDERS: ATTEND Nurse Practitioner
DX: N76.0 Acute vaginitis (principal)
CPT/HCPCS: 81514; 81599; 87109; 87491; 87591; 87661

== ENCOUNTER 2023-01-18 08:00 | Outpatient (CLI) | payer MEDICAID ==
[2023-01-18 20:01] LABS: BACTERIAL VAGINOSIS DNA NEGATIVE (NEGATIVE); CANDIDA GLABRATA DNA NEGATIVE (NEGATIVE); CANDIDA GROUP DNA NEGATIVE (NEGATIVE); CANDIDA KRUSEI DNA NEGATIVE (NEGATIVE); TRICHOMONAS VAGINALIS DNA NEGATIVE (NEGATIVE)
[2023-01-18 21:10] LABS: NEISSERIA GONORRHOEAE DNA NEGATIVE (NEGATIVE)
[2023-01-18 21:12] LABS: CHLAMYDIA TRACHOMATIS DNA POSITIVE (NEGATIVE)
== END 2023-01-18 23:59 | disposition home or self-care (01) ==
LOC: LAB.WC 08:00
PROVIDERS: ATTEND Nurse Practitioner
DX: N89.8 Other specified noninflammatory disorders of vagina (principal); Z11.3 Encounter for screening for infections with a predominantly sexual mode of transmission
CPT/HCPCS: 81514; 87491; 87591; 87661

== ENCOUNTER 2023-02-06 08:00 | Outpatient (CLI) | payer MEDICAID ==
[2023-02-06 21:15] LABS: CHLAMYDIA TRACHOMATIS DNA NEGATIVE (NEGATIVE); NEISSERIA GONORRHOEAE DNA NEGATIVE (NEGATIVE); TRICHOMONAS VAGINALIS DNA NEGATIVE (NEGATIVE)
== END 2023-02-06 23:59 | disposition home or self-care (01) ==
LOC: LAB.WC 08:00
PROVIDERS: ATTEND Nurse Practitioner
DX: Z11.3 Encounter for screening for infections with a predominantly sexual mode of transmission (principal)
CPT/HCPCS: 87491; 87591; 87661

== ENCOUNTER 2023-02-22 08:00 | Outpatient (CLI) | payer MEDICAID ==
[2023-02-22 20:19] LABS: BACTERIAL VAGINOSIS DNA NEGATIVE (NEGATIVE); CANDIDA GLABRATA DNA NEGATIVE (NEGATIVE); CANDIDA GROUP DNA NEGATIVE (NEGATIVE); CANDIDA KRUSEI DNA NEGATIVE (NEGATIVE); TRICHOMONAS VAGINALIS DNA NEGATIVE (NEGATIVE)
[2023-02-22 22:25] LABS: CHLAMYDIA TRACHOMATIS DNA NEGATIVE (NEGATIVE); NEISSERIA GONORRHOEAE DNA NEGATIVE (NEGATIVE); TRICHOMONAS VAGINALIS DNA NEGATIVE (NEGATIVE)
== END 2023-02-22 23:59 | disposition home or self-care (01) ==
LOC: LAB.WC 08:00
PROVIDERS: ATTEND Nurse Practitioner
DX: N89.8 Other specified noninflammatory disorders of vagina (principal); N76.0 Acute vaginitis; Z11.3 Encounter for screening for infections with a predominantly sexual mode of transmission
CPT/HCPCS: 81514; 81599; 87109; 87491; 87591; 87661

== ENCOUNTER 2023-04-01 08:00 | Outpatient (CLI) | payer MEDICAID ==
[2023-04-02 16:24] LABS: BACTERIAL VAGINOSIS DNA NEGATIVE (NEGATIVE); CANDIDA GLABRATA DNA NEGATIVE (NEGATIVE); CANDIDA GROUP DNA POSITIVE (NEGATIVE); CANDIDA KRUSEI DNA NEGATIVE (NEGATIVE); TRICHOMONAS VAGINALIS DNA NEGATIVE (NEGATIVE)
[2023-04-03 00:05] LABS: CHLAMYDIA TRACHOMATIS DNA NEGATIVE (NEGATIVE); NEISSERIA GONORRHOEAE DNA NEGATIVE (NEGATIVE)
== END 2023-04-01 08:01 | disposition home or self-care (01) ==
LOC: LAB.WC 08:00
PROVIDERS: ATTEND Nurse Practitioner
DX: Z11.3 Encounter for screening for infections with a predominantly sexual mode of transmission (principal); N89.8 Other specified noninflammatory disorders of vagina
CPT/HCPCS: 81514; 87491; 87591; 87661

== ENCOUNTER 2023-05-31 02:13 | Outpatient (CLI) | payer MEDICAID | END 2023-05-31 23:59 | disposition EMS.NT | LOC: EMS 02:13 | DX: R07.9 Chest pain, unspecified (principal); R20.0 Anesthesia of skin; R45.89 Other symptoms and signs involving emotional state; F41.9 Anxiety disorder, unspecified ==

== ENCOUNTER 2023-05-31 08:00 | Outpatient (CLI) | payer MEDICAID ==
[2023-05-31 19:06] LABS: BACTERIAL VAGINOSIS DNA NEGATIVE (NEGATIVE); CANDIDA GLABRATA DNA NEGATIVE (NEGATIVE); CANDIDA GROUP DNA NEGATIVE (NEGATIVE); CANDIDA KRUSEI DNA NEGATIVE (NEGATIVE); TRICHOMONAS VAGINALIS DNA NEGATIVE (NEGATIVE)
[2023-05-31 20:52] LABS: CHLAMYDIA TRACHOMATIS DNA NEGATIVE (NEGATIVE); NEISSERIA GONORRHOEAE DNA NEGATIVE (NEGATIVE)
== END 2023-05-31 23:59 | disposition home or self-care (01) ==
LOC: MERGE 08:00 → LAB.WC 08:00
PROVIDERS: ATTEND Nurse Practitioner
DX: N89.8 Other specified noninflammatory disorders of vagina (principal)
CPT/HCPCS: 81514; 81599; 87109; 87491; 87591; 87661

== ENCOUNTER 2023-07-02 07:57 | Outpatient (CLI) | payer MEDICAID ==
[~2023-07-02 07:57] MED LIST: GADOTERATE MEGLUMINE 10 MMOL/20 ML VIAL ONE
== END 2023-07-02 23:59 | disposition home or self-care (01) ==
LOC: DI 07:57
PROVIDERS: ATTEND Nurse Practitioner
DX: Z53.9 Procedure and treatment not carried out, unspecified reason (principal)

== ENCOUNTER 2023-07-17 12:49 | Outpatient (CLI) | payer MEDICAID ==
--- NOTE | 2023-07-17 16:58 | MRI Report ---
PROCEDURE: Pelvis W/WO INDICATIONS: PELVIC PAIN CONTRAST: 16.8ml Clariscan TECHNIQUE: Coronal ultra fast SE, sagittal breath-hold T2 FSE; axial T1 FSE with and without fat saturation thro ugh the pelvis. Optional long- and short-axis uterine nonbreath-hold T2 FSE through the uterus. Sag ittal or axial dynamic ultra fast GE during administration of contrast. Post-contrast axial or coron al ultra fast GE / 2-D spoiled GE with fat saturation from the iliac crests to the symphysis. Option al diffusion weighted imaging and ADC may be performed. COMPARISON: 10/04/2022 ultrasound FINDINGS: Image quality: Diagnostic Lower abdomen: No evidence of small bowel obstruction. Bladder: Unremarkable. Reproductive organs: The endometrium measures 1.1 cm in combined thickness, within normal limits. The re are nabothian cysts. Junctional zone is within normal limits. There are numerous follicles in both ovaries, numbering more than 12 per ovary. The ovaries are prominent. A right ovarian cyst is seen, without internal enhancing characteristics, measuring 4 x 4.2 x 4 cm. Enhancement within the right ovarian stroma may represent a collapsed corpus luteum cyst. A moderate amount of fluid surrounds the right adnexa. There is also cul-de-sac fluid. On precontrast T1-weighted imaging, no evidence of deep pelvic active endometriosis deposits. Rectum: Unremarkable Vessels and lymph nodes: No evidence of aneurysmal vessel or pathologic lymph nodes by size criteria. Pelvic wall: Unremarkable Bones: No acute or suspicious osseous finding. IMPRESSION: Unremarkable MR appearance of the uterus and cervix. 4 x 4.2 cm right ovarian cyst, without internal soft tissue nodularity. This can predispose to torsio n. A moderate amount of free fluid is also seen surrounding the right adnexa, extending to pelvic cul -de-sac, which could be seen with ruptured cyst versus physiologic fluid. Consider sonographic follow-up depending on clinical context in 3 months or sooner. Prominent bilateral ovaries with peripheral follicles, overall nonspecific, correlate with laboratory testing to assess for polycystic ovarian syndrome. Reviewed by: Peña Whatley MD on 07/17/2023 4:57 PM PST Approved by: Peña Whatley MD on 07/17/2023 4:57 PM PST Station ID: [id number]
== END 2023-07-17 12:50 | disposition home or self-care (01) ==
LOC: DI 12:49
PROVIDERS: ATTEND Nurse Practitioner
DX: R10.2 Pelvic and perineal pain (principal); Z87.42 Personal history of other diseases of the female genital tract; N83.201 Unspecified ovarian cyst, right side
CPT/HCPCS: 72197; A9575

== ENCOUNTER 2023-09-02 18:31 | Outpatient (CLI) | payer MEDICAID ==
--- NOTE | 2023-09-03 08:09 | Ultrasound Report ---
PROCEDURE: Pelvic Complete INDICATIONS: OVARIAN CYST TECHNIQUE: Real-time transabdominal scanning was performed of the pelvic organs, with image documentation. COMPARISON: MRI 07/17/2023 FINDINGS: Uterus: 9.4 x 4.5 x 5.9 cm. Anteverted positioning. Endometrium measures 15 mm, which is at the upper limit of normal. Ovaries: Persistent cyst measures 4.7 x 3 x 4.2 cm, probably with internal hemorrhagic products. This was simple appearing on MRI. Overall right ovarian volume is 83 cc. Left ovary volume is 14 cc, with many follicles. Color flows were present. Other: No pathologic free fluid. IMPRESSION: Persistent right ovarian complicated cyst measuring 4.7 x 4.2 cm, likely similar size allowing for di fferences in modality. Although this is most likely a benign hemorrhagic cyst, gynecologic follow-up is recommended due to persistence, with possible repeat imaging surveillance. Reviewed by: Peña Whatley MD on 09/03/2023 8:07 AM PDT Approved by: Peña Whatley MD on 09/03/2023 8:07 AM PDT Station ID: [id number]
== END 2023-09-02 18:32 | disposition home or self-care (01) ==
LOC: DI 18:31
PROVIDERS: ATTEND Nurse Practitioner
DX: N83.291 Other ovarian cyst, right side (principal)

== ENCOUNTER 2023-10-12 12:43 | Outpatient (CLI) | payer OTHER ==
[2023-10-12 12:58] LABS: BASOPHILS % (AUTO) 0.6 %; EOSINOPHILS # (AUTO) 0.1 10^3/uL (0.0-0.7); EOSINOPHILS % (AUTO) 2.3 %; HGB - HEMOGLOBIN 12.1 g/dL (12.0-16.0); LYMPHOCYTES # (AUTO) 1.4 10^3/uL (1.5-3.5); LYMPHOCYTES % (AUTO) 27.4 %; MEAN CORPUSCULAR HEMOGLOBIN 23.9 pg (27.0-31.0); MEAN CORPUSCULAR HGB CONC 30.3 g/dL (32.0-36.0); MEAN CORPUSCULAR VOLUME 79.1 fL (81.0-99.0); MEAN PLATELET VOLUME 9.6 fL (7.9-10.8); MONOCYTES # (AUTO) 0.4 10^3/uL (0.0-1.0); MONOCYTES % (AUTO) 7.5 %; NEUTROPHILS # (AUTO) 3.2 10^3/uL (1.5-6.6); PLT - PLATELET COUNT 332 10^3/uL (130-450); RED BLOOD COUNT 5.06 10^6/uL (4.20-5.40); RED CELL DISTRIBUTION WIDTH 15.1 % (12.0-15.0); WHITE BLOOD COUNT 5.2 x10^3/uL (4.8-10.8)
[2023-10-12 13:13] LABS: ALBUMIN 4.4 g/dL (3.2-5.5); ALBUMIN/GLOBULIN RATIO 1.5 (1.0-2.2); BILIRUBIN,TOTAL 0.6 mg/dL (0.2-1.0); CALCIUM 9.8 mg/dL (8.5-10.3); CREATININE 0.7 mg/dL (0.6-1.3); POTASSIUM 3.9 mmol/L (3.5-4.5); TOTAL PROTEIN 7.3 g/dL (6.4-8.9)
== END 2023-10-12 12:44 | disposition home or self-care (01) ==
LOC: LAB 12:43
PROVIDERS: ATTEND Nurse Practitioner
DX: R60.0 Localized edema (principal)
CPT/HCPCS: 36415; 80053; 83880; 85025

== ENCOUNTER 2023-10-28 15:30 | Emergency (ER) | payer MEDICAID, OTHER ==
--- NOTE | 2023-10-28 15:52 | ED Physician Documentation ---
PD HPI CHEST PAIN - Stated complaint Stated Complaint: CHEST PX/PRESSURE - Chief complaint Chief Complaint: Cardiac - History obtained from History obtained from: Patient - Additional information Additional information: For the last 3 days she has had anterior chest pain. It is better if she stretches her arms. She is not short of breath with it. Denies pedal edema or calf pain. No recent travel. She has a history of hypertension which she manages with diet and exercise. It is not worse with exertion. She is not on control. PD PAST MEDICAL HISTORY - Past Medical History Past Medical History: No Cardiovascular: None Respiratory: None Neuro: None Endocrine/Autoimmune: None GI: None GI TECHNICIAN: None : None HEENT: None Psych: None Musculoskeletal: None Derm: None - Past Surgical History Past Surgical History: No - Present Medications Home Medications: Ambulatory Orders Medication Instructions Recorded Confirmed No Known Home Medications 10/28/23 10/28/23 - Allergies Allergies/Adverse Reactions: Allergies Allergy/AdvReac Type Severity Reaction Status Date / Time No Known Drug Allergies Allergy Verified 10/28/23 15:32 - Social History Does the pt smoke?: No Smoking Status: Never smoker Does the pt drink ETOH?: No Does the pt have substance abuse?: No - Immunizations Immunizations are current?: Yes - POLST Patient has POLST: No PD ED PE NORMAL - Vitals Vital signs reviewed: Yes - General General: Alert and oriented X 3, No acute distress - Neck Neck: Supple, no meningeal sign, No bony TTP - Cardiac Cardiac: RRR, No murmur - Respiratory Respiratory: No respiratory distress, Clear bilaterally - Abdomen Abdomen: Non tender - Extremities Extremities: No edema, No calf tenderness / cord - Neuro Neuro: Alert and oriented X 3, Normal speech Results - Vitals Vitals: Vital Signs - 24 hr 10/28/23 15:33 Temperature 36.8 C Heart Rate 80 Respiratory 16 Rate Blood Pressure 132/72 H O2 Saturation 100 Oxygen O2 Source Room air - EKG (time done) 1538 EKG releavant findings:: EKG personally interpreted by author of this note. Relevant findings are: Rate: Rate (enter#) (87) Rhythm: NSR [place]: Normal Intervals: Normal CT QRS: Normal Ischemia: Normal ST segments Computer interpretation: Agree with computer - Labs Labs: Laboratory Tests 10/28/23 16:00 Troponin I High Sens < 2.3 L - Rads (name of study) 2 view chest x-ray is unremarkable. Relevant Findings:: Final report received, EMP independent interpretation of test PD Medical Decision Making - ED course ED course: PERC negative, heart score 1 Departure - Departure Disposition: 01 Home, Self Care Clinical Impression: Chest pain Qualifiers: Chest pain type: precordial pain Qualified Code(s): R07.2 - Precordial pain Condition: Good Record reviewed to determine appropriate education?: Yes Instructions: ED Chest Pain Atypical Unkn Cause Comments: You were seen today for chest pain and thankfully there is no indication that is from a serious condition such as your heart or blood clot. Call your doctor to arrange a follow-up appointment, make the next available appointment. In the interim, return anytime if worse or if new symptoms develop. Forms: PCP List
--- NOTE | 2023-10-28 16:33 | XRAY Report ---
PROCEDURE: Chest 2V INDICATIONS: chest pain TECHNIQUE: 2 views of the chest were acquired. COMPARISON: None. FINDINGS: Surgical changes and devices: None. Lungs and pleura: No pleural effusions or pneumothorax. Lungs are clear. Mediastinum: Mediastinal contours appear normal. Heart size is normal. Bones and chest wall: No suspicious bony lesions. Overlying soft tissues appear unremarkable. IMPRESSION: No acute cardiopulmonary process. Reviewed by: Nilton Keene MD on 10/28/2023 4:32 PM PDT Approved by: Nilton Keene MD on 10/28/2023 4:32 PM PDT Station ID: [id number]
[2023-10-28 16:49] VITALS: BP 122/80; O2SAT 99
== END 2023-10-28 16:45 | disposition home or self-care (01) ==
LOC: ED 15:30
DX: R07.2 Precordial pain (principal)
CPT/HCPCS: 36415; 84484; 93005; 99283; 99284

== ENCOUNTER 2023-10-30 14:09 | Outpatient (CLI) | payer OTHER ==
[2023-10-30 14:18] LABS: BASOPHILS % (AUTO) 0.3 %; EOSINOPHILS # (AUTO) 0.1 10^3/uL (0.0-0.7); EOSINOPHILS % (AUTO) 1.5 %; HCT - HEMATOCRIT 37.9 % (37.0-47.0); HGB - HEMOGLOBIN 11.6 g/dL (12.0-16.0); LYMPHOCYTES # (AUTO) 1.9 10^3/uL (1.5-3.5); LYMPHOCYTES % (AUTO) 27.3 %; MEAN CORPUSCULAR HEMOGLOBIN 24.2 pg (27.0-31.0); MEAN CORPUSCULAR HGB CONC 30.6 g/dL (32.0-36.0); MEAN CORPUSCULAR VOLUME 79.1 fL (81.0-99.0); MONOCYTES # (AUTO) 0.3 10^3/uL (0.0-1.0); MONOCYTES % (AUTO) 4.6 %; NEUTROPHILS # (AUTO) 4.5 10^3/uL (1.5-6.6); PLT - PLATELET COUNT 324 10^3/uL (130-450); RED BLOOD COUNT 4.79 10^6/uL (4.20-5.40); RED CELL DISTRIBUTION WIDTH 14.9 % (12.0-15.0); WHITE BLOOD COUNT 6.8 x10^3/uL (4.8-10.8)
== END 2023-10-30 14:10 | disposition home or self-care (01) ==
LOC: LAB 14:09
PROVIDERS: ATTEND Obstetrics & Gynecology
DX: Z01.812 Encounter for preprocedural laboratory examination (principal); N83.291 Other ovarian cyst, right side
CPT/HCPCS: 36415; 85025

== ENCOUNTER 2023-11-05 10:53 | Day surgery (SDC) | payer OTHER ==
[2023-11-05] MEDS: LACTATED RINGERS 1,000 ML IV ONE (10:58)
[2023-11-05] MEDS: CELECOXIB 100 MG CAPSULE PO ONE (11:04)
[2023-11-05] MEDS: GABAPENTIN 400 MG CAPSULE ONE (11:04)
[2023-11-05 11:15] LABS: HCG UR QUAL NEGATIVE
[2023-11-05] MEDS: ACETAMINOPHEN 500 MG TABLET PO ONE (11:36)
--- NOTE | 2023-11-05 13:07 | ANESTHESIA ---
Pre-Anesthesia VS, & Labs - Diagnosis right ovarian cyst - Procedure laparoscopic right ovarian cystectomy Vital Signs: Temp Pulse Resp BP Pulse Ox O2 Flow Rate 37.2 C 89 24 96 11/05/23 11:06 11/05/23 11:06 11/05/23 11:06 11/05/23 11:06 Height: 5 ft 4 in Weight (kg): 104 kg Body Mass Index: 39.3 BMI Classification: Obese - NPO >8 hours - Is Patient ?: No - Lab Results Current Lab Results: Laboratory Tests 11/05/23 11:21: POC Whole Bld Glucose 116 H Lab results reviewed: Yes Home Medications and Allergies Home Medications: Ambulatory Orders Propranolol HCl 20 mg PO TID PRN 10/30/23 Propranolol HCl 20 mg PO TID PRN 10/30/23 Allergies/Adverse Reactions: Allergies Allergy/AdvReac Type Severity Reaction Status Date / Time No Known Drug Allergies Allergy Verified 11/05/23 11:21 Anes History & Medical History - Anesthetic History Family history of Anesthesia Complications: Denies Family history of Malignant Hyperthermia: Denies - Medical History Cardiovascular: reports: None Pulmonary: reports: None Gastrointestinal: reports: None Urinary: reports: None Neuro: reports: None Musculoskeletal: reports: None Endocrine/Autoimmune: reports: None Blood Disorders: reports: None Skin: reports: None Smoking Status: Never smoker Psychosocial: reports: Anxiety History of Cancer?: No - Surgical History General: reports: Colonoscopy, EGD Exam General: Alert, Oriented x3, Cooperative, No acute distress Dental: WNL Mouth Openin Fingerbreadth Neck Mobility: Normal Mallampati classification: II Thyromental Distance: 4-6 cm Mental/Cognitive Status: Alert/Oriented X3, Normal for patient Plan Anesthesia Type: General Consent for Procedure(s) Verified and Reviewed: Yes Code Status: Attempt Resuscitation ASA classification: 1-Healthy patient Is this case an emergency?: No
[2023-11-05] MEDS ORDERED: ATROPINE ABBOJECT 1 MG/10 ML SYRINGE IVP PRN (13:09)
[2023-11-05] MEDS ORDERED: ONDANSETRON 4 MG/2 ML VIAL IVP PRN (13:09)
[2023-11-05] MEDS ORDERED: MORPHINE 2 MG/ML CARPUJECT IVP PRN (13:09)
[2023-11-05] MEDS ORDERED: HYDROmorphone 0.5 MG/0.5 ML SYRINGE IVP PRN (13:09)
[2023-11-05] MEDS ORDERED: NALOXONE 0.4 MG/ML VIAL IVP PRN (13:09)
[2023-11-05] MEDS ORDERED: ROCURONIUM 50 MG/5 ML VIAL ONE (13:28)
[2023-11-05] MEDS ORDERED: fentaNYL 100 MCG/2 ML VIAL ONE ×3 (13:28→16:07)
[2023-11-05] MEDS ORDERED: PROPOFOL 200 MG/20 ML VIAL IVP ONE (13:28)
[2023-11-05] MEDS ORDERED: MIDAZOLAM 2 MG/2 ML VIAL ONE (13:28)
[2023-11-05] MEDS ORDERED: BUPIVACAINE 0.5%-EPI 1:200000 PF 30 ML VIAL ONE (13:43)
[2023-11-05] MEDS ORDERED: LACTATED RINGERS 1,000 ML IV SCH (14:00)
[2023-11-05] MEDS ORDERED: DEXAMETHASONE 4 MG/ML VIAL ONE (14:15)
[2023-11-05] MEDS ORDERED: KETOROLAC 30 MG/ML VIAL ONE (14:38)
[2023-11-05] MEDS ORDERED: ONDANSETRON 4 MG/2 ML VIAL ONE (14:38)
[2023-11-05] MEDS ORDERED: SUGAMMADEX 200 MG/2 ML VIAL IVP ONE (14:39)
[2023-11-05] MEDS: BUPIVACAINE 0.5% PF 30 ML VIAL SUBQ ONE (15:14)
--- NOTE | 2023-11-05 15:20 | OPERATIVE REPORT ---
Operative Report - General Procedure Date: 11/05/23 Planned Procedure: Laparoscopic right ovarian cystectomy Pre-Op Diagnosis: Right ovarian cyst Procedure Performed: Laparoscopic lysis of adhesions Post Op Diagnosis: Pelvic adhesions, Pelvic inflammatory disease - Procedure Note Primary Surgeon: Guevara Coto MD Secondary Surgeon: Farrukh Perez MD Anesthesia Provider: Bambi Kern CRNA Anesthesia Technique: General ET tube Pathology: None IV Fluids (mL): 300 Estimated Blood Loss (mL): 10 Urine Output (mL): 50 Findings: Adhesions over the posterior uterus, tubes, ovaries, bowels. Peritoneal inclusion cysts. Few anterior uterine adhesions. Complications: None - Other Other Information/Narrative: Patient was taken the operating room after reconfirming consent, patient was taken the operating room where general anesthesia was obtained easily. She is placed in dorsolithotomy position and was prepped and draped in the usual fashion. After timeout was taken, proceeded with the surgery. She had a Gupta catheter placed then a sponge stick for uterine manipulation. 2 mL of 0.5% Marcaine with epinephrine was used below the umbilicus. An 11 blade scalpel was used to incise the skin. Direct visual entry was used to place the infraumbilical trocar. Upon entering the peritoneal cavity, low flow was used to ensure appropriate positioning. Upon visualization of the abdominal cavity, high flow was then initiated. 2 additional trocars was placed under visualization in a similar fashion in the right and left lower quadrants. With Trendelenburg position, the uterus was elevated and the bowel was moved out of the way, and adhesions to the uterus, ovaries, tubes, bowel, peritoneal wall were noted. The anterior adhesions were easily dissected with Metzenbaum scissors. The posterior adhesions were more numerous, although thin. These were dissected with a combination of blunt and sharp dissection freeing the ovary and tube on the right. This was similarly done freeing the ovary from the uterus. The left side was similarly dissected, freeing the ovary and tube from the adhesions. At that point we elevated the bowel out of the pelvis and noted peritoneal inclusion cysts that were dissected bluntly and fluid was removed. While a few adhesions remain, the pelvic organs were mobile and free. We left some of the bowel adhesions not attached to the pelvic organs intact. The abdomen was reviewed for hemostasis, and a healthy-appearing liver was noted. The trocars were then removed, and abdomen was evacuated of gas. The trocar sites were then closed with a 4-0 Monocryl in a sub-cuticular fashion and covered with Dermabond. Patient was taken to the PACU in stable condition. I appreciate the assistance of Dr. Perez during this procedure, and the assistance in retraction, visualization, dissection, and overall assistance during the case were instrumental to the patient's wellbeing.
[2023-11-05] MEDS: LACTATED RINGERS 700 ML IV ONE ×2 (15:23→16:25)
[2023-11-05] MEDS: fentaNYL 100 MCG/2 ML VIAL IVP PRN (16:09)
[2023-11-05 17:03] VITALS: BP 117/64; O2SAT 94
--- NOTE | 2023-11-05 23:44 | ANESTHESIA POST OP EVALUATION ---
Anesthesia Post Eval - Post Anesthesia Eval Vitals: Last Vital Signs Temp 36.8 C 11/05/23 16:50 Pulse 79 11/05/23 16:50 Resp 14 11/05/23 16:50 BP 117/64 11/05/23 16:50 Pulse Ox 94 11/05/23 16:50 O2 Flow Rate CV Function Including HR & BP: Stable Pain Control: Satisfactory Nausea & Vomiting: Negative Mental Status: Baseline Respiratory Status: Airway Patent Hydration Status: Satisfactory Anesthesia Complications: None
== END 2023-11-05 10:54 | disposition home or self-care (01) ==
LOC: SDS 10:53
PROVIDERS: ATTEND Obstetrics & Gynecology
DX: N73.9 Female pelvic inflammatory disease, unspecified (principal); N73.6 Female pelvic peritoneal adhesions (postinfective); K66.8 Other specified disorders of peritoneum; E66.9 Obesity, unspecified; Z68.39 Body mass index [BMI] 39.0-39.9, adult
CPT/HCPCS: 58660; 81025; A9270; J7120

== ENCOUNTER 2024-01-13 13:33 | Outpatient (CLI) | payer OTHER ==
[2024-01-13 13:48] LABS: BASOPHILS # (AUTO) 0.1 10^3/uL (0.0-0.1); BASOPHILS % (AUTO) 0.7 %; EOSINOPHILS # (AUTO) 0.2 10^3/uL (0.0-0.7); EOSINOPHILS % (AUTO) 2.1 %; HCT - HEMATOCRIT 39.6 % (37.0-47.0); HGB - HEMOGLOBIN 12.3 g/dL (12.0-16.0); LYMPHOCYTES % (AUTO) 27.4 %; MEAN CORPUSCULAR HEMOGLOBIN 24.2 pg (27.0-31.0); MEAN CORPUSCULAR HGB CONC 31.1 g/dL (32.0-36.0); MEAN PLATELET VOLUME 9.6 fL (7.9-10.8); MONOCYTES # (AUTO) 0.6 10^3/uL (0.0-1.0); MONOCYTES % (AUTO) 7.6 %; NEUTROPHILS # (AUTO) 4.5 10^3/uL (1.5-6.6); NEUTROPHILS % (AUTO) 61.9 %; PLT - PLATELET COUNT 333 10^3/uL (130-450); RED BLOOD COUNT 5.08 10^6/uL (4.20-5.40); RED CELL DISTRIBUTION WIDTH 14.7 % (12.0-15.0); WHITE BLOOD COUNT 7.3 x10^3/uL (4.8-10.8)
[2024-01-13 14:10] LABS: ESTIMATED AVERAGE GLUCOSE 114 mg/dL (70-100); HEMOGLOBIN A1c% 5.6 % (4.27-6.07)
[2024-01-13 14:38] LABS: THYROID STIMULATING HORMONE 2.45 uIU/mL (0.34-5.60)
[2024-01-13 14:44] LABS: FERRITIN 16.3 ng/mL (11.0-306.8)
== END 2024-01-13 13:34 | disposition home or self-care (01) ==
LOC: LAB 13:33
PROVIDERS: ATTEND Nurse Practitioner Family
DX: D50.9 Iron deficiency anemia, unspecified (principal); R53.83 Other fatigue
CPT/HCPCS: 36415; 82728; 83036; 83540; 84443; 84466; 85025

== ENCOUNTER 2024-02-11 08:00 | Outpatient (CLI) | payer OTHER ==
[2024-02-11 20:57] LABS: CHLAMYDIA TRACHOMATIS DNA NEGATIVE (NEGATIVE); NEISSERIA GONORRHOEAE DNA NEGATIVE (NEGATIVE)
[2024-02-11 21:03] LABS: BACTERIAL VAGINOSIS DNA NEGATIVE (NEGATIVE); CANDIDA GLABRATA DNA NEGATIVE (NEGATIVE); CANDIDA GROUP DNA POSITIVE (NEGATIVE); CANDIDA KRUSEI DNA NEGATIVE (NEGATIVE); TRICHOMONAS VAGINALIS DNA NEGATIVE (NEGATIVE)
== END 2024-02-11 23:59 | disposition home or self-care (01) ==
LOC: LAB.WC 08:00
PROVIDERS: ATTEND Obstetrics & Gynecology
DX: Z11.3 Encounter for screening for infections with a predominantly sexual mode of transmission (principal)
CPT/HCPCS: 81514; 87491; 87591; 87661

== ENCOUNTER 2024-03-04 08:00 | Outpatient (CLI) | payer OTHER ==
[2024-03-04 17:31] LABS: BILIRUBIN,URINE NEGATIVE (NEGATIVE); GLUCOSE, URINE (UA) NEGATIVE (NEGATIVE); KETONES,URINE (UA) NEGATIVE (NEGATIVE); LEUKOCYTE ESTERASE, URINE NEGATIVE (NEGATIVE); NITRITE,URINE NEGATIVE (NEGATIVE); OCCULT BLOOD,URINE NEGATIVE (NEGATIVE); PH,URINE 5.5 PH (5.0-7.5); PROTEIN,URINE NEGATIVE (NEGATIVE); UROBILINOGEN,URINE 0.2 (NORMAL) E.U./dL (NORMAL)
[2024-03-04 18:12] LABS: AMORPHOUS SEDIMENT,UR Marked /LPF; BACTERIA,URINE None Seen /HPF (None Seen); CLARITY,URINE CLOUDY (CLEAR); RBC,URINE None Seen /HPF (0-5); SQUAMOUS EPITHELIAL CELL,UR FEW Squamous (<= Few); WBC,URINE 0-3 /HPF (0-5)
== END 2024-03-04 23:59 | disposition home or self-care (01) ==
LOC: LAB.WC 08:00
PROVIDERS: ATTEND Obstetrics & Gynecology
DX: R10.9 Unspecified abdominal pain (principal)
CPT/HCPCS: 81001; 87086